=== PATIENT | male | born 1965 | race African-American/Black ===

== ENCOUNTER 2016-06-13 04:41 | Emergency (ER) | payer MEDICAID ==
[~2016-06-13] VITALS: Ht 175.3 cm; Wt 99.8 kg
[2016-06-13] MEDS ORDERED: LANTUS SOL100 UNIT/1 SUBQ (04:50)
[2016-06-13] MEDS ORDERED: METFORMIN HCL500 M1 ORAL (04:50)
[2016-06-13] MEDS ORDERED: GLIPIZIDE5 MG ORAL (04:50)
[2016-06-13] MEDS ORDERED: Azithromycin 250mg tab ORAL ONE (05:15)
[2016-06-13] MEDS ORDERED: Lidocaine 1% MPF 10mg/ml 5ml ONE (05:16)
[2016-06-13] MEDS ORDERED: TESSALON PERLE100 MG ORAL (05:19)
--- NOTE | 2016-06-13 05:20 | Emergency Room Report ---
History of Present Illness General Chief Complaint: Upper Respiratory Illness Source: Patient Present Illness HPI Is a 51-year-old male with no significant past medical history. He presents with a cough and congestion for last 4 days. No fever or chills. Cough is whitish sputum. Also has a runny nose. Second complaint is of penile discharge. His been ongoing for last 2 days. Greenish whitish in nature. He is sexually active. No other complaint. Allergies: Coded Allergies: No Known Allergies (Unverified , 06/13/16) Patient History Past Medical History: none, see triage record, old chart reviewed Past Surgical History: none Pertinent Family History: none Social History: Reports: smoking Immunizations: other Reviewed Nursing Documentation: PMH: Agreed, PSxH: Agreed Nursing Documentation-PMH Hx Diabetes: Yes Review of Systems Eye: Denies: blurred vision, eye pain ENT: Denies: ear pain, nose congestion, throat swelling Respiratory: Reports: cough, sputum, Denies: shortness of breath Cardiovascular: Denies: chest pain, palpitations Gastrointestinal: Denies: abdominal pain, diarrhea, nausea, vomiting Genitourinary: Reports: discharge Musculoskeletal: Denies: back pain, joint pain Skin: Denies: rash Neurological: Denies: headache, numbness Endocrine: Denies: increased thirst, increased urine Hematologic/Lymphatic: Denies: easy bruising All Other Systems: negative except mentioned in HPI Physical Exam Vital Signs Date Time Temp Pulse Resp B/P Pulse Ox O2 Delivery O2 Flow Rate FiO2 06/13/16 04:45 98.2 118 14 175/68 95 Room Air vitals normal except for hypertension Sp02 EP Interpretation: reviewed, normal General Appearance: well appearing, no apparent distress, alert Head: normocephalic, atraumatic Eyes: bilateral eye EOMI, bilateral eye PERRL ENT: hearing grossly normal, normal pharynx Neck: full range of motion, supple, no meningismus Respiratory: chest non-tender, lungs clear, normal breath sounds Cardiovascular #1: regular rate, rhythm, no murmur Gastrointestinal: normal bowel sounds, non tender, no mass, no organomegaly, no bruit, non-distended Genitourinary: other - Greenish penile discharge. No testicular tenderness Musculoskeletal: back normal, gait/station normal, normal range of motion Psychiatric: mood/affect normal Skin: warm/dry Medical Decision Making Diagnostic Impression: Primary Impression: Upper respiratory infection Qualified Codes: J06.9 - Acute upper respiratory infection, unspecified; B97.89 - Other viral agents as the cause of diseases classified elsewhere Additional Impression: Urethritis, gonococcal, acute ER Course Patient presents with a viral upper respiratory infection. No evidence of pneumonia. Blood pressures in the normal range now. No evidence of end organ damage. He is asymptomatic. No need for antibiotics. Is discharged is consistent with a gonorrheal type of discharge. We'll treat for Chlamydia also. Recommended an outpatient testing for HIV, hepatitis, syphilis and other STDs. Last Vital Signs Date Time Temp Pulse Resp B/P Pulse Ox O2 Delivery O2 Flow Rate FiO2 06/13/16 04:57 118 14 Room Air 06/13/16 04:45 98.2 175/68 95 Status: improved Disposition: HOME, SELF-CARE Condition: Stable Scripts Benzonatate* (TESSALON PERLE*) 100 Mg Capsule 100 MG ORAL THREE TIMES A DAY, #20 PERLE Prov: TODD GOMEZ M.D. 06/13/16 Patient Instructions: Upper Respiratory Infection, Adult Additional Instructions: Followup with your Dr. in 7 days. Return for increasing pain, fever, chills, or any concern. Recommend outpatient testing for HIV, hepatitis, syphilis and other STDs. TODD GOMEZ M.D. Jun 13, 2016 05:20
[2016-06-13 05:28] VITALS: BP 143/95
[2016-06-13 05:29] VITALS: BP 143/95
== END 2016-06-13 05:55 | disposition home or self-care (01) ==
LOC: EMR 05:53
DX: J06.9 Acute upper respiratory infection, unspecified (principal); B97.89 Other viral agents as the cause of diseases classified elsewhere; A54.01 Gonococcal cystitis and urethritis, unspecified; E11.9 Type 2 diabetes mellitus without complications; F17.200 Nicotine dependence, unspecified, uncomplicated
CPT/HCPCS: 82962; 96372; 99283; J0696; Q0144

== ENCOUNTER 2016-06-17 04:08 | Emergency (ER) | payer MEDICAID ==
[~2016-06-17] VITALS: Ht 175.3 cm; Wt 99.8 kg
[~2016-06-17 04:08] MED LIST: GLIPIZIDE5 MG ORAL; LANTUS SOL100 UNIT/1 SUBQ; METFORMIN HCL500 M1 ORAL; TESSALON PERLE100 MG ORAL
[2016-06-17] MEDS ORDERED: IBUPROFEN600 MG ORAL (04:40)
[2016-06-17] MEDS ORDERED: ROBAXIN-750750 MG PO (04:40)
[2016-06-17 04:48] VITALS: BP 147/95
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
== END 2016-06-17 04:51 | disposition home or self-care (01) ==
LOC: EMR 04:36
DX: M25.512 Pain in left shoulder (principal); M54.2 Cervicalgia; M79.652 Pain in left thigh; V49.50XA Passenger injured in collision with unspecified motor vehicles in traffic accident, initial encounter; Y92.410 Unspecified street and highway as the place of occurrence of the external cause; I10 Essential (primary) hypertension; E11.9 Type 2 diabetes mellitus without complications
CPT/HCPCS: 99282

== ENCOUNTER 2018-08-16 15:10 | Emergency (ER) | payer MEDICAID ==
[~2018-08-16] VITALS: Ht 175.3 cm; Wt 94.3 kg
[~2018-08-16 15:10] MED LIST changes: +IBUPROFEN600 MG ORAL; +ROBAXIN-750750 MG PO
[2018-08-16] MEDS ORDERED: BP med (15:23)
--- NOTE | 2018-08-16 15:24 | NUR ---
ED Nurse Note: Pt came into the Er w/complaints of coughing x 2 months. No fever. Complaining of 10/10 back pain. Non radiating. A + O x4. Ambulatory. Pt denies injury.
[2018-08-16 15:25] VITALS: BP 150/98
[2018-08-16] MEDS ORDERED: Benzonatate 100mg Perles ORAL ONE ×2 (15:59→16:00)
--- NOTE | 2018-08-16 16:02 | Emergency Room Report ---
History of Present Illness General Chief Complaint: Upper Respiratory Illness Source: Patient Present Illness HPI 53-year-old male patient presents ER complaining of cough for the past 2 weeks. Reports cough with sputum. Denies hemoptysis. Denies recent travel outside the country. Reports previously seen at [facility] 2 times for similar symptoms, first time 1 month ago and was admitted for several days to be monitored. Denies being treated for cough at that time, states that he went back to [facility] a few weeks ago again after the coughing caused him to pull a muscle in his back; states he was treated with pain at the time however was not given any medicine at that time for the cough. Denies fever. Denies shortness of breath, speaking full sentences currently. Denies reports history of asthma as a child, states does not have an inhaler, states has not had to use an inhaler. Reports smokes cigarettes, states he smokes a pack a day. Denies other aggravating or relieving factors. Denies history of OK or stroke. Allergies: Coded Allergies: No Known Allergies (Unverified , 06/13/16) Patient History Past Medical History: see triage record Reviewed Nursing Documentation: PMH: Agreed; PSxH: Agreed Nursing Documentation-PMH Past Medical History: No History, Except For Hx Hypertension: Yes Hx Diabetes: Yes Review of Systems All Other Systems: negative except mentioned in HPI Physical Exam Vital Signs Date Time Temp Pulse Resp B/P (MAP) Pulse Ox O2 Delivery O2 Flow Rate FiO2 08/16/18 15:16 98.1 106 18 158/101 94 Room Air 08/16/18 15:25 98 Sp02 EP Interpretation: reviewed, normal General Appearance: well appearing, no apparent distress, alert, GCS 15, non- toxic Head: normocephalic, atraumatic Eyes: bilateral eye normal inspection, bilateral eye PERRL ENT: hearing grossly normal, normal pharynx, no angioedema, normal voice, uvula midline, moist mucus membranes Neck: full range of motion, no meningismus, no bony tend Respiratory: lungs clear, normal breath sounds, no rhonchi, no respiratory distress, no accessory muscle use, no wheezing, speaking full sentences, other - Anterior chest tender to palpation, no bony deformity, no flail chest Cardiovascular #1: regular rate, rhythm, no edema Cardiovascular #2: 2+ radial (R), 2+ radial (L) Gastrointestinal: non tender, soft, no mass, non-distended, no guarding, no rebound Musculoskeletal: back normal, digits/nails normal, gait/station normal, normal range of motion, non-tender, no calf tenderness, Rayray's Sign negative Neurologic: alert, oriented x3, responsive, motor strength/tone normal, sensory intact Psychiatric: mood/affect normal Skin: no rash Medical Decision Making PA Attestation Dr. Hitchcock is my supervising Physician whom patient management has been discussed with. Diagnostic Impression: Primary Impression: Atypical pneumonia Additional Impression: Upper respiratory infection ER Course Pt presents to ED c/o cough [id number]. DDX considered but are not limited to influenza, viral URI, pneumonia, strep throat, rhinitis, sinusitis, otitis media, otitis externa, OK, PE, costochondritis. Low suspicion for PE per well's criteria. On PE, chest is TTP, reports pain is reproducible, had previous admissions and workup.; chest pain likely musculoskeletal in nature secondary to cough, does not require cardiac workup at this time. Patient instructed to take NSAIDs as needed for pain symptoms. Advised patient follow-up with sports photographer for cardiac stress testing. VITAL SIGNS are WNL, patient is afebrile. ER COURSE: Lungs clear to auscultation, no wheezes, rhonci or rales. patient afebrile. Does not require breathing treatment acutely. Will discharge patient with inhaler. Chest x-ray negative for acute disease however due to duration of symptoms will provide patient with antibiotics to cover for atypical pneumonia. Symptomatic treatment. drink plenty of fluids. Salt water gargles for sore throat. Followup with PCP for further treatment and/or referral as needed. ER precautions given. Patient resting comfortably no acute distress, nontoxic- appearing, states cough symptoms have improved since arrival to the ER. Okay for outpatient follow-up and treatment DISCHARGE: At this time pt is stable for d/c to home. Patient is resting comfortably, in no acute distress, nontoxic appearing. Patient to take medications as instructed Will provide with patient care instructions and any necessary prescriptions. Care plan and follow-up instructions provided. Patient instructed to follow-up with primary care provider in 3 - 5 days. Patient questions asked and answered. Patient reports understanding and agreement to treatment plan. ER precautions given. Patient instructed to return to ER immediately for any new or worsening of symptoms including but not limited to increasing SOB, persistent fever, intractable vomiting. - Please note that this Emergency Department Report was dictated using Purplu[employer] cleaner technology software, occasionally this can lead to erroneous entry secondary to interpretation by the dictation equipment. Chest X-Ray Diagnostic Results Chest X-Ray Diagnostic Results : Chest X-Ray Ordered: Yes # of Views/Limited/Complete: 1 View Indication: Chest Pain EP Interpretation: Yes PA Xray: Interpretation reviewed, by supervising MD, and agrees with findings. Interpretation: no consolidation, no effusion, no pneumothorax, no acute cardiopulmonary disease Impression: No acute disease EZIO Greer PA-C Last Vital Signs Date Time Temp Pulse Resp B/P (MAP) Pulse Ox O2 Delivery O2 Flow Rate FiO2 08/16/18 15:25 100 20 Room Air 98 08/16/18 15:25 98.0 150/98 98 Status: improved Disposition: HOME, SELF-CARE Condition: Stable Scripts Azithromycin* (ZITHROMAX*) 250 Mg Tablet 250 MG ORAL DAILY, #6 TAB 0 Refills Take two tables once daily for 1 day, then one tablet once daily for 4 days. Prov: Fidel Greer 08/16/18 Benzonatate* (TESSALON PERLE*) 100 Mg Capsule 100 MG ORAL THREE TIMES A DAY, #30 PERLE Prov: Fidel Greer 08/16/18 Ibuprofen* (MOTRIN*) 600 Mg Tablet 600 MG ORAL Q8H PRN for For Pain, #30 TAB 0 Refills Prov: Fidel Greer 08/16/18 Albuterol Sulfate* (ALBUTEROL SULFATE MDI*) 8.5 Gm Hfa.aer.ad 2 PUFF INH Q6H, #1 INH 0 Refills Prov: Fidel Greer. 08/16/18 Patient Instructions: Community-Acquired Pneumonia, Adult, [id number], Smoking Cessation, Tips for Success, [id number], Upper Respiratory Infection, Adult Additional Instructions: Followup with primary care provider in 3 -5 days. Discussed referral to sports photographer for cardiac stress test. Discussed referral to pulmonology. Stop smoking. Stop smoking. Take medications as directed. Patient questions asked and answered. ER precautions given, patient instructed to return to ER immediately for any new or worsening of symptoms. Fidel Greer Aug 16, 2018 16:02
--- NOTE | 2018-08-16 16:49 | Diagnostic Imaging Report ---
Indication: Chest pain Technique: One view of the chest Comparison: none Findings: Lungs and pleural spaces are clear. Heart size is normal Impression: No acute process
[2018-08-16] MEDS ORDERED: ALBUTEROL SULF8.5 GM INH (17:05)
[2018-08-16] MEDS ORDERED: IBUPROFEN600 MG ORAL (17:05)
[2018-08-16] MEDS ORDERED: ZITHROMAX250 MG ORAL (17:05)
[2018-08-16] MEDS ORDERED: TESSALON PERLE100 MG ORAL (17:05)
[2018-08-16 17:11] VITALS: BP 145/97
--- NOTE | 2018-08-16 17:12 | NUR ---
ER DISCHARGE NOTE: Patient is cleared to be discharged per ERMD, pt is aox4, on room air, with stable vital signs. pt was given dc and prescription instructions, pt was able to verbalize understanding, pt id band removed without complications. pt is able to ambulate with steady gait. pt took all belongings.
== END 2018-08-16 17:12 | disposition home or self-care (01) ==
LOC: EMR 17:00
DX: J18.9 Pneumonia, unspecified organism (principal); J06.9 Acute upper respiratory infection, unspecified; E11.9 Type 2 diabetes mellitus without complications; I11.0 Hypertensive heart disease with heart failure
CPT/HCPCS: 71045; 99283

== ENCOUNTER 2019-12-22 22:41 | Observation (INO) | payer MEDICAID, OTHER ==
[~2019-12-22 22:41] MED LIST changes: +ALBUTEROL SULF8.5 GM INH; +BP med; +ZITHROMAX250 MG ORAL
[2019-12-23] MEDS ORDERED: Morphine Sulfate 4mg/ml Inj (IV USE ONLY) IVP ONE (00:30)
[2019-12-23] MEDS ORDERED: LORazepam Inj 2mg/ml 1ml IV ONE (02:00)
[2019-12-23] MEDS ORDERED: Omnipaque 350 100ml vial INJ PRN (02:00)
[2019-12-23] MEDS ORDERED: Morphine Sulfate 2mg/ml Inj(IV/IM USE ONLY) IVP PRN ×2 (05:00→06:30)
[2019-12-23] MEDS: NovoLOG Insulin Flexpen SUBQ SCH ×3 (08:39→17:03)
[2019-12-23] MEDS ORDERED: Piperacillin/Tazobactam 3.375 GM in NS 110 ML IVPB SCH (12:00)
[2019-12-23] MEDS ORDERED: NovoLOG Insulin Flexpen SUBQ SCH (16:50)
[2019-12-23] MEDS ORDERED: Sodium Chloride 1gm Tab ORAL SCH (18:00)
[2019-12-23] MEDS ORDERED: Pantoprazole Inj IVP SCH (21:00)
[2019-12-23] MEDS ORDERED: Tamsulosin 0.4mg cap ORAL SCH (21:00)
[2019-12-23] MEDS ORDERED: Levemir Flexpen SUBQ SCH (21:00)
== END 2019-12-23 18:51 | disposition left against medical advice (07) ==
DX: N17.9 Acute kidney failure, unspecified (principal); R07.9 Chest pain, unspecified; F14.90 Cocaine use, unspecified, uncomplicated; F12.90 Cannabis use, unspecified, uncomplicated; R41.82 Altered mental status, unspecified; I10 Essential (primary) hypertension; R11.2 Nausea with vomiting, unspecified; R19.7 Diarrhea, unspecified; J18.9 Pneumonia, unspecified organism; R00.0 Tachycardia, unspecified; E87.1 Hypo-osmolality and hyponatremia; E11.65 Type 2 diabetes mellitus with hyperglycemia; K44.9 Diaphragmatic hernia without obstruction or gangrene; R79.89 Other specified abnormal findings of blood chemistry; Z79.899 Other long term (current) drug therapy; Z79.4 Long term (current) use of insulin; K21.9 Gastro-esophageal reflux disease without esophagitis; E86.0 Dehydration
CPT/HCPCS: 36415; 71045; 71275; 80053; 80307; 81003; 82962; 83036; 83690; 84484; 85025; 85610; 85730; 86850; 86900; 86901; 93005; 96374; 96375; J1815; J2270; J2405; J2543; J7040; Q9967; S0028; U0002; Z7502

== ENCOUNTER 2020-01-27 21:08 | Inpatient (IN) | payer OTHER ==
[~2020-01-27] VITALS: Ht 175.3 cm; Wt 80.8 kg
[2020-01-27] MEDS ORDERED: Morphine Sulfate 4mg/ml Inj (IV USE ONLY) IVP ONE (21:30)
--- NOTE | 2020-01-27 21:30 | Emergency Room Report ---
History of Present Illness General Chief Complaint: Vomiting Source: Patient (Tyrese Bingham MD) Present Illness HPI 54-year-old male presents the ED for evaluation. Presenting with vomiting. States he has been vomiting for the last 3 days. Notes epigastric and chest pain. Burning, 7 out of 10, nonradiating. Denies any diarrhea. Denies any fevers or chills. Accu-Chek in triage over 500. States he is a diabetic and states he is been unable to keep down his medications. No other aggravating relieving factors. Denies any other associated symptoms (Tyrese Bingham MD) Allergies: Coded Allergies: No Known Allergies (Unverified , 06/13/16) COVID-19 Screening Contact w/high risk pt: No Experienced COVID-19 symptoms?: No COVID-19 Testing performed VISUAL ARTIST: Yes COVID-19 Screening: Negative COVID-19 COVID-19 Testing Source: [place] (Tyrese Bingham MD) Patient History Past Medical History: DM, HTN Past Surgical History: none Pertinent Family History: none Social History: Denies: smoking, alcohol use, drug use Immunizations: UTD Reviewed Nursing Documentation: PMH: Agreed; PSxH: Agreed (Tyrese Bingham MD) Nursing Documentation-PMH Past Medical History: No History, Except For Hx Hypertension: Yes Hx Diabetes: Yes Hx Cancer: No Hx Neurological Problems: No (Tyrese Bingham MD) Review of Systems All Other Systems: negative except mentioned in HPI (Tyrese Bingham MD) Physical Exam Vital Signs Date Time Temp Pulse Resp B/P (MAP) Pulse Ox O2 Delivery O2 Flow Rate FiO2 01/27/20 21:14 99.0 115 19 174/102 (126) 98 Room Air Sp02 EP Interpretation: reviewed, normal General Appearance: alert, GCS 15, non-toxic, mild distress Head: normocephalic, atraumatic Eyes: bilateral eye normal inspection, bilateral eye PERRL ENT: hearing grossly normal, normal pharynx, no angioedema, normal voice Neck: full range of motion, supple/symm/no masses Respiratory: chest non-tender, lungs clear, normal breath sounds, speaking full sentences Cardiovascular #1: no edema, tachycardia Cardiovascular #2: 2+ carotid (R), 2+ carotid (L), 2+ radial (R), 2+ radial (L) , 2+ dorsalis pedis (R), 2+ dorsalis pedis (L) Gastrointestinal: normal bowel sounds, non tender, soft, non-distended, no guarding, no rebound Rectal: deferred Genitourinary: normal inspection, no CVA tenderness Musculoskeletal: back normal, normal range of motion, gait/station normal, non- tender Neurologic: alert, motor strength/tone normal, oriented x3, sensory intact, responsive, speech normal Psychiatric: judgement/insight normal, memory normal, mood/affect normal, no suicidal/homicidal ideation Reflexes: 3+ bicep (R), 3+ bicep (L), 3+ tricep (R), 3+ tricep (L), 3+ knee (R) , 3+ knee (L) Skin: no rash Lymphatic: no adenopathy (Tyrese Bingham MD) Medical Decision Making Diagnostic Impression: Primary Impression: Hyperglycemia Additional Impression: Vomiting Qualified Codes: R11.2 - Nausea with vomiting, unspecified ER Course Please see above note. Patient signed out to me for review of labs and ultimate disposition. Glucose still high. Insulin ordered. Patient needing admission due to vomiting and hyperglycemia with glucose controlled. Contact Dr. King Laboratory Tests Test 01/27/20 21:18 01/28/20 00:03 01/28/20 08:05 White Blood Count 8.1 K/UL (4.8-10.8) 8.6 K/UL (4.8-10.8) Red Blood Count 6.59 M/UL (4.70-6.10) H 6.37 M/UL (4.70-6.10) H Hemoglobin 17.7 G/DL (14.2-18.0) 17.0 G/DL (14.2-18.0) Hematocrit 55.1 % (42.0-52.0) H 53.7 % (42.0-52.0) H Mean Corpuscular Volume 84 FL (80-99) 84 FL (80-99) Mean Corpuscular Hemoglobin 26.8 PG (27.0-31.0) L 26.7 PG (27.0-31.0) L Mean Corpuscular Hemoglobin Concent 32.1 G/DL (32.0-36.0) 31.7 G/DL (32.0-36.0) L Red Cell Distribution Width 13.0 % (11.6-14.8) 12.8 % (11.6-14.8) Platelet Count 204 K/UL (150-450) 181 K/UL (150-450) Mean Platelet Volume 10.5 FL (6.5-10.1) H 9.9 FL (6.5-10.1) Neutrophils (%) (Auto) 78.8 % (45.0-75.0) H 65.3 % (45.0-75.0) Lymphocytes (%) (Auto) 13.7 % (20.0-45.0) L 22.2 % (20.0-45.0) Monocytes (%) (Auto) 5.3 % (1.0-10.0) 9.6 % (1.0-10.0) Eosinophils (%) (Auto) 0.0 % (0.0-3.0) 0.0 % (0.0-3.0) Basophils (%) (Auto) 2.3 % (0.0-2.0) H 2.8 % (0.0-2.0) H Sodium Level 127 MMOL/L (136-145) L 136 MMOL/L (136-145) Potassium Level 3.8 MMOL/L (3.5-5.1) 3.4 MMOL/L (3.5-5.1) L Chloride Level 84 MMOL/L (98-107) L 93 MMOL/L (98-107) L Carbon Dioxide Level 34 MMOL/L (21-32) H 36 MMOL/L (21-32) H Anion Gap 9 mmol/L (5-15) 7 mmol/L (5-15) Blood Urea Nitrogen 30 mg/dL (7-18) H 25 mg/dL (7-18) H Creatinine 1.7 MG/DL (0.55-1.30) H 1.5 MG/DL (0.55-1.30) H Estimated Glomerular Filtration Rate 51.4 mL/min (>60) 59.4 mL/min (>60) Glucose Level 492 MG/DL (74-106) H 190 MG/DL (74-106) #H Calcium Level 9.1 MG/DL (8.5-10.1) 9.1 MG/DL (8.5-10.1) Magnesium Level 2.0 MG/DL (1.8-2.4) Total Bilirubin 0.7 MG/DL (0.2-1.0) Aspartate Amino Transferase (AST) 36 U/L (15-37) Alanine Aminotransferase (ALT) 51 U/L (12-78) Alkaline Phosphatase 65 U/L (46-116) Troponin I 0.017 ng/mL (0.000-0.056) 0.003 ng/mL (0.000-0.056) Total Protein 7.9 G/DL (6.4-8.2) Albumin 3.5 G/DL (3.4-5.0) Globulin 4.4 g/dL Albumin/Globulin Ratio 0.8 (1.0-2.7) L Acetone Level Positive-small (NEGATIVE) Arterial Blood pH 7.487 (7.350-7.450) Arterial Blood Partial Pressure CO2 47.3 mmHg (35.0-45.0) H Arterial Blood Partial Pressure O2 61.5 mmHg (75.0-100.0) L Arterial Blood HCO3 35.0 mmol/L (22.0-26.0) H Arterial Blood Oxygen Saturation 91.2 % (95-100) L Arterial Blood Base Excess 9.9 (-2-2) *H Humza Test Positive D-Dimer 2.35 mg/L FEU (0.00-0.49) H Lipase 163 U/L (73-393) (Slim Christiansen MD) EKG Diagnostic Results Rate: tachycardiac Rhythm: NSR ST Segments: other - twave inversions (Tyrese Bingham MD) Rhythm Strip Diag. Results EP Interpretation: yes Rhythm: NSR, no PVC's, no ectopy (Tyrese Bingham MD) EP Interpretation: yes Rhythm: no PVC's, no ectopy, other - Sinus tachycardia (Slim Christiansen MD) Chest X-Ray Diagnostic Results Chest X-Ray Diagnostic Results : Chest X-Ray Ordered: Yes # of Views/Limited/Complete: 1 View Indication: Other EP Interpretation: Yes Interpretation: no consolidation, no effusion, no pneumothorax Impression: No acute disease Electronically Signed by: Electronically signed by Slim Christiansen MD (Slim Christiansen MD) Last Vital Signs Date Time Temp Pulse Resp B/P (MAP) Pulse Ox O2 Delivery O2 Flow Rate FiO2 01/27/20 21:14 99.0 115 19 174/102 (126) 98 Room Air (Tyrese Bingham MD) Last Vital Signs Date Time Temp Pulse Resp B/P (MAP) Pulse Ox O2 Delivery O2 Flow Rate FiO2 01/28/20 09:00 Room Air 01/28/20 08:00 98.7 70 17 101/67 (78) 100 Status: improved (Slim Christiansen MD) Disposition: ADMITTED INPATIENT Condition: Serious Tyerse Bingham MD Jan 27, 2020 21:30 Slim Christiansen MD Jan 27, 2020 23:06
[2020-01-27 21:34] VITALS: BP 174/102
[2020-01-27 21:40] LABS: ANION GAP 9 mmol/L (5-15); BASOPHILS % (AUTO) 2.3 % (0.0-2.0); BLOOD UREA NITROGEN 30 mg/dL (7-18); CALCIUM 9.1 MG/DL (8.5-10.1); CARBON DIOXIDE 34 MMOL/L (21-32); CHLORIDE 84 MMOL/L (98-107); CREATININE 1.7 MG/DL (0.55-1.30); HEMATOCRIT 55.1 % (42.0-52.0); HEMOGLOBIN 17.7 G/DL (14.2-18.0); LYMPHOCYTES % (AUTO) 13.7 % (20.0-45.0); MEAN CORPUSCULAR VOLUME 84 FL (80-99); MONOCYTES % (AUTO) 5.3 % (1.0-10.0); NEUTROPHILS % (AUTO) 78.8 % (45.0-75.0); PLATELET COUNT 204 K/UL (150-450); POTASSIUM 3.8 MMOL/L (3.5-5.1); RED BLOOD COUNT 6.59 M/UL (4.70-6.10); SODIUM 127 MMOL/L (136-145); WHITE BLOOD COUNT 8.1 K/UL (4.8-10.8)
[2020-01-27 21:45] LABS: ALANINE AMINOTRANSFERASE 51 U/L (12-78); ALBUMIN 3.5 G/DL (3.4-5.0); ALBUMIN/GLOBULIN RATIO 0.8 (1.0-2.7); ALKALINE PHOSPHATASE 65 U/L (46-116); ASPARTATE AMINO TRANSFERASE 36 U/L (15-37); BILIRUBIN,TOTAL 0.7 MG/DL (0.2-1.0)
--- NOTE | 2020-01-27 21:48 | Diagnostic Imaging Report ---
EXAM: XR Chest, 1 View CLINICAL HISTORY: CP TECHNIQUE: Frontal view of the chest. COMPARISON: 12/22/2019 FINDINGS: Lungs: Unremarkable. No consolidation. Pleural space: Unremarkable. No pneumothorax. Heart: Unremarkable. No cardiomegaly. Mediastinum: Unremarkable. Bones/joints: No acute abnormality IMPRESSION: Unremarkable chest.
[2020-01-27] MEDS ORDERED: Insulin Human Regular 100units/ml 3ml IV ONE (23:15)
[2020-01-28] VITALS: BP 135/76
[2020-01-28 04:00] VITALS: BP 137/80
[2020-01-28] MEDS: NovoLOG Insulin Flexpen SUBQ SCH ×7 (05:16→22:09)
--- NOTE | 2020-01-28 07:41 | History and Physical ---
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 SALES SERVICE REP 01/28/20 0741: History of Present Illness General Date patient seen: Jan 28, 2020 Time patient seen: 07:00 Reason for Hospitalization: Vomiting Present Illness HPI 54 years old male with past medical history of diabetes mellitus, hypertension, presented to emergency room for vomiting episodes for the last 3 days. He denied blood in emesis. No diarrhea. No nausea, vomiting, No abdominal pain. No fever or chills. Patient with prior hx of drug abuse Patient also reported epigastric and chest pain , described as burning, nonradiating , 7 out of 10 on a scale 1-10. No fever or chills. Patient with hx of drug abuse, Urine tox screen in December + for cocaine and marijuana. In triage blood sugar was over 500. Patient reported being diabetic and unable to keep down his medications. Upon evaluation patient was tachycardic with heart rate 115 and hypertensive with blood pressure 174/102. EKG revealed sinus tachycardia ,no acute ischemic changes. Chemistry revealed sodium 127, potassium 3.8, glucose 492, stable LFT. Anion gap 9 No leukocytosis , hemoglobin 17.7 . Chest x-ray revealed no acute cardiopulmonary pathology . In ED department patient received insulin, IV fluids, Pepcid and admitted for further management. Allergies: Coded Allergies: No Known Allergies (Unverified , 06/13/16) COVID-19 Screening Contact w/high risk pt: No Experienced COVID-19 symptoms?: No Medication History Scheduled Albuterol Sulfate* (Albuterol Sulfate Mdi*), 2 PUFF INH Q6H Azithromycin* (Zithromax*), 250 MG ORAL DAILY Benzonatate* (Tessalon Perle*), 100 MG ORAL THREE TIMES A DAY Benzonatate* (Tessalon Perle*), 100 MG ORAL THREE TIMES A DAY Glipizide* (Glipizide*), 5 MG ORAL BIDAC, (Reported) Insulin Glargine (Lantus), 0 SUBQ BEDTIME, (Reported) Metformin Hcl* (Metformin Hcl*), 500 MG ORAL TWICE A DAY, (Reported) Methocarbamol* (Robaxin-750*), 750 MG PO TID Scheduled PRN Ibuprofen (Motrin), 600 MG ORAL Q8H PRN for For Pain Ibuprofen (Motrin), 600 MG ORAL Q8H PRN for For Pain Miscellaneous Medications [BP med], (Reported) Patient History Healthcare decision maker Resuscitation status Advanced Directive on File Review of Systems Constitutional: Reports: weakness Eye: Reports: no symptoms Respiratory: Reports: no symptoms Cardiovascular: Reports: chest pain Gastrointestinal: Reports: see HPI Genitourinary: Reports: no symptoms Musculoskeletal: Reports: no symptoms Skin: Reports: no symptoms Psychiatric: Reports: other - hx of substance abuse/cocaine Neurological: Reports: no symptoms Endocrine: Reports: see HPI Hematologic/Lymphatic: Reports: no symptoms Physical Exam Last 24 Hour Vital Signs Date Time Temp Pulse Resp B/P (MAP) Pulse Ox O2 Delivery O2 Flow Rate FiO2 01/28/20 04:00 98.8 103 19 137/80 (99) 96 01/28/20 04:00 105 01/28/20 00:00 98.8 104 19 135/76 (95) 95 01/28/20 00:00 104 01/27/20 23:45 98.0 105 18 138/87 98 Room Air 01/27/20 23:35 Room Air 01/27/20 21:59 99.0 01/27/20 21:34 115 19 Room Air 01/27/20 21:34 99.0 85 19 174/102 98 Room Air 01/27/20 21:14 99.0 115 19 174/102 (126) 98 Room Air Laboratory Tests Test 01/27/20 21:18 01/28/20 00:03 White Blood Count 8.1 K/UL (4.8-10.8) Red Blood Count 6.59 M/UL (4.70-6.10) H Hemoglobin 17.7 G/DL (14.2-18.0) Hematocrit 55.1 % (42.0-52.0) H Mean Corpuscular Volume 84 FL (80-99) Mean Corpuscular Hemoglobin 26.8 PG (27.0-31.0) L Mean Corpuscular Hemoglobin Concent 32.1 G/DL (32.0-36.0) Red Cell Distribution Width 13.0 % (11.6-14.8) Platelet Count 204 K/UL (150-450) Mean Platelet Volume 10.5 FL (6.5-10.1) H Neutrophils (%) (Auto) 78.8 % (45.0-75.0) H Lymphocytes (%) (Auto) 13.7 % (20.0-45.0) L Monocytes (%) (Auto) 5.3 % (1.0-10.0) Eosinophils (%) (Auto) 0.0 % (0.0-3.0) Basophils (%) (Auto) 2.3 % (0.0-2.0) H Sodium Level 127 MMOL/L (136-145) L Potassium Level 3.8 MMOL/L (3.5-5.1) Chloride Level 84 MMOL/L (98-107) L Carbon Dioxide Level 34 MMOL/L (21-32) H Anion Gap 9 mmol/L (5-15) Blood Urea Nitrogen 30 mg/dL (7-18) H Creatinine 1.7 MG/DL (0.55-1.30) H Estimat Glomerular Filtration Rate 51.4 mL/min (>60) Glucose Level 492 MG/DL (74-106) H Calcium Level 9.1 MG/DL (8.5-10.1) Magnesium Level 2.0 MG/DL (1.8-2.4) Total Bilirubin 0.7 MG/DL (0.2-1.0) Aspartate Amino Transf (AST/SGOT) 36 U/L (15-37) Alanine Aminotransferase (ALT/SGPT) 51 U/L (12-78) Alkaline Phosphatase 65 U/L (46-116) Troponin I 0.017 ng/mL (0.000-0.056) Total Protein 7.9 G/DL (6.4-8.2) Albumin 3.5 G/DL (3.4-5.0) Globulin 4.4 g/dL Albumin/Globulin Ratio 0.8 (1.0-2.7) L Acetone Level Positive-small (NEGATIVE) Arterial Blood pH 7.487 (7.350-7.450) Arterial Blood Partial Pressure CO2 47.3 mmHg (35.0-45.0) H Arterial Blood Partial Pressure O2 61.5 mmHg (75.0-100.0) L Arterial Blood HCO3 35.0 mmol/L (22.0-26.0) H Arterial Blood Oxygen Saturation 91.2 % (95-100) L Arterial Blood Base Excess 9.9 (-2-2) *H Humza Test Positive Height (Feet): 5 Height (Inches): 9.00 Weight (Pounds): 175 Medications Current Medications Medications (Trade) Dose Ordered Sig/Ubaldo Route PRN Reason Start Time Stop Time Status Last Admin Dose Admin Acetaminophen (Tylenol) 650 mg Q4H PRN ORAL Mild Pain (Pain Scale 1-3) 01/28/20 00:00 02/27/20 00:00 Aspirin (ASA) 81 mg DAILY NG 01/28/20 09:00 03/13/20 08:59 Dextrose (Dextrose 50%) 25 ml Q30M PRN IV Hypoglycemia 01/28/20 00:00 04/27/20 00:00 Dextrose (Dextrose 50%) 50 ml Q30M PRN IV Hypoglycemia 01/28/20 00:00 04/27/20 00:00 Heparin Sodium (Porcine) (Heparin 5000 units/ml) 5,000 units EVERY 12 HOURS SUBQ 01/28/20 09:00 03/13/20 08:59 Hydralazine HCl (Apresoline) 10 mg Q4H PRN IV SBP > 160 01/28/20 00:00 04/27/20 00:00 Insulin Aspart (NovoLOG) BEFORE MEALS AND HS SUBQ 01/28/20 06:30 04/27/20 06:29 01/28/20 05:17 Insulin Aspart (NovoLOG) 6 units NOVOTIAC SUBQ 01/28/20 06:30 04/27/20 06:29 01/28/20 05:16 Insulin Detemir (Levemir) 18 units BEDTIME SUBQ 01/28/20 21:00 04/27/20 20:59 Ondansetron HCl (Zofran) 4 mg Q6H PRN IVP Nausea & Vomiting 01/28/20 00:00 02/27/20 00:00 Sodium Chloride 1,000 ml @ 125 mls/hr Q8H IV 01/28/20 00:00 02/27/20 00:00 01/28/20 00:32 Assessment/Plan Assessment/Plan: ASSESSMENT Vomiting. probably due to hypo Na GISELL, likely due to dehydration brought by vomiting Hyperglycemia associated with DM ( unable to keep down his emdiations due to vonting) HTN with intimal HTN urgency Chest pain Epigastric pain Cocaine abuse PLAN OF CARE telemetry repeat troponin and ECG a/PLT therapy with ASA , check lipid panel hold on BB, given recebnt hx of cocaine abuse urine tox ordered hydralazine as needed for blood pressure spikes await for further cardio recs DVT and GI prophylaxis BS management with long-acting Levemir and sliding scale of insulin as needed check Hgb A1c diabetic diet , diabetic teaching rapid COVID testing ( last checked about a month ago) aggressive IV hydration monitor renal parameters and lytes acute kidney injury likely due to dehydration source of hyponatremia probably due to dehydration, uncontrolled BS -resolved replace K urine tox screen supportive care case discussed and evaluated by supervising physician Sergio King MD 01/28/20 1313: History of Present Illness General Reason for Hospitalization: Vomiting Present Illness Allergies: Coded Allergies: No Known Allergies (Unverified , 06/13/16) Medication History Scheduled Albuterol Sulfate* (Albuterol Sulfate Mdi*), 2 PUFF INH Q6H Azithromycin* (Zithromax*), 250 MG ORAL DAILY Benzonatate* (Tessalon Perle*), 100 MG ORAL THREE TIMES A DAY Benzonatate* (Tessalon Perle*), 100 MG ORAL THREE TIMES A DAY Glipizide* (Glipizide*), 5 MG ORAL BIDAC, (Reported) Insulin Glargine (Lantus), 0 SUBQ BEDTIME, (Reported) Metformin Hcl* (Metformin Hcl*), 500 MG ORAL TWICE A DAY, (Reported) Methocarbamol* (Robaxin-750*), 750 MG PO TID Scheduled PRN Ibuprofen (Motrin), 600 MG ORAL Q8H PRN for For Pain Ibuprofen (Motrin), 600 MG ORAL Q8H PRN for For Pain Miscellaneous Medications [BP med], (Reported) Assessment/Plan Assessment/Plan: Patient seen and examined with SALES SERVICE REP. Agree with above A&P as it reflects our joint deliberations. DM with hyperglycemia, no e/o DKA GISELL likely 2/2 dehydration Atypical CP with elevated D-dimer N/V H/O pancreatic cyst vs IPMN vs other H/O cocaine use HTN a/w HTNurgency --> Tele --> R/O COVID --> Duplex and D-dimer --> TTE --> Cards eval --> IVF, monitor renal function, renal eval --> GI recs, F/U CT, anti-emetic therapy --> F/U UTox --> DVT Px: Hep SQ --> S/W Miranda Rose NP Jan 28, 2020 07:41 Sergio King MD Jan 28, 2020 13:13
[2020-01-28 08:00] VITALS: BP 101/67
[2020-01-28 08:47] LABS: BASOPHILS % (AUTO) 2.8 % (0.0-2.0); HEMATOCRIT 53.7 % (42.0-52.0); LYMPHOCYTES % (AUTO) 22.2 % (20.0-45.0); MEAN CORPUSCULAR VOLUME 84 FL (80-99); MONOCYTES % (AUTO) 9.6 % (1.0-10.0); NEUTROPHILS % (AUTO) 65.3 % (45.0-75.0); PLATELET COUNT 181 K/UL (150-450); RED BLOOD COUNT 6.37 M/UL (4.70-6.10); RED CELL DISTRIBUTION WIDTH 12.8 % (11.6-14.8); WHITE BLOOD COUNT 8.6 K/UL (4.8-10.8)
[2020-01-28 09:01] LABS: ANION GAP 7 mmol/L (5-15); BLOOD UREA NITROGEN 25 mg/dL (7-18); CALCIUM 9.1 MG/DL (8.5-10.1); CARBON DIOXIDE 36 MMOL/L (21-32); CHLORIDE 93 MMOL/L (98-107); CREATININE 1.5 MG/DL (0.55-1.30); POTASSIUM 3.4 MMOL/L (3.5-5.1); SODIUM 136 MMOL/L (136-145)
--- NOTE | 2020-01-28 09:49 | General Progress Note ---
Assessment/Plan Problem List: (1) DM (diabetes mellitus) ICD Codes: E11.9 - Type 2 diabetes mellitus without complications SNOMED: 50500485 (2) Vomiting ICD Codes: R11.10 - Vomiting, unspecified SNOMED: 218216635 (3) Abdominal pain ICD Codes: R10.9 - Unspecified abdominal pain SNOMED: 36034507 Assessment/Plan: add reglan add ppi CT of abd given ? panc cyst based on last admission chest CT repeat labs will fu Subjective ROS Limited/Unobtainable: Yes Allergies: Coded Allergies: No Known Allergies (Unverified , 06/13/16) Objective Last 24 Hour Vital Signs Date Time Temp Pulse Resp B/P (MAP) Pulse Ox O2 Delivery O2 Flow Rate FiO2 01/28/20 08:00 98.7 70 17 101/67 (78) 100 01/28/20 04:00 98.8 103 19 137/80 (99) 96 01/28/20 04:00 105 01/28/20 00:00 98.8 104 19 135/76 (95) 95 01/28/20 00:00 104 01/27/20 23:45 98.0 105 18 138/87 98 Room Air 01/27/20 23:35 Room Air 01/27/20 21:59 99.0 01/27/20 21:34 115 19 Room Air 01/27/20 21:34 99.0 85 19 174/102 98 Room Air 01/27/20 21:14 99.0 115 19 174/102 (126) 98 Room Air Laboratory Tests 01/27/20 21:18: White Blood Count 8.1, Red Blood Count 6.59H, Hemoglobin 17.7, Hematocrit 55.1H , Mean Corpuscular Volume 84, Mean Corpuscular Hemoglobin 26.8L, Mean Corpuscular Hemoglobin Concent 32.1, Red Cell Distribution Width 13.0, Platelet Count 204, Mean Platelet Volume 10.5H, Neutrophils (%) (Auto) 78.8H, Lymphocytes (%) (Auto) 13.7L, Monocytes (%) (Auto) 5.3, Eosinophils (%) (Auto) 0.0, Basophils (%) (Auto) 2.3H, Sodium Level 127L, Potassium Level 3.8, Chloride Level 84L, Carbon Dioxide Level 34H, Anion Gap 9, Blood Urea Nitrogen 30H, Creatinine 1.7H, Estimat Glomerular Filtration Rate 51.4, Glucose Level 492H, Calcium Level 9.1, Magnesium Level 2.0, Total Bilirubin 0.7, Aspartate Amino Transf (AST/SGOT) 36, Alanine Aminotransferase (ALT/SGPT) 51, Alkaline Phosphatase 65, Troponin I 0.017, Total Protein 7.9, Albumin 3.5, Globulin 4.4, Albumin/Globulin Ratio 0.8L, Acetone Level Positive-small 01/28/20 00:03: Arterial Blood pH 7.487H, Arterial Blood Partial Pressure CO2 47.3H, Arterial Blood Partial Pressure O2 61.5L, Arterial Blood HCO3 35.0H, Arterial Blood Oxygen Saturation 91.2L, Arterial Blood Base Excess 9.9*H, Humza Test Positive 01/28/20 08:05: White Blood Count 8.6, Red Blood Count 6.37H, Hemoglobin 17.0, Hematocrit 53.7H , Mean Corpuscular Volume 84, Mean Corpuscular Hemoglobin 26.7L, Mean Corpuscular Hemoglobin Concent 31.7L, Red Cell Distribution Width 12.8, Platelet Count 181, Mean Platelet Volume 9.9, Neutrophils (%) (Auto) 65.3, Lymphocytes (%) (Auto) 22.2, Monocytes (%) (Auto) 9.6, Eosinophils (%) (Auto) 0.0, Basophils (%) (Auto) 2.8H, Sodium Level 136, Potassium Level 3.4L, Chloride Level 93L, Carbon Dioxide Level 36H, Anion Gap 7, Blood Urea Nitrogen 25H, Creatinine 1.5H, Estimat Glomerular Filtration Rate 59.4, Glucose Level 190 #H, Calcium Level 9.1, Troponin I 0.003, D-Dimer 2.35H, Lipase 163 Height (Feet): 5 Height (Inches): 9.00 Weight (Pounds): 175 General Appearance: alert EENT: PERRL/EOMI Neck: supple Cardiovascular: normal rate Respiratory/Chest: decreased breath sounds Abdomen: normal bowel sounds, non tender, soft Extremities: non-tender Kalyan Hayward MD Jan 28, 2020 09:49
[2020-01-28] MEDS ORDERED: Omnipaque-300 100ml vial INJ PRN (10:00)
[2020-01-28] MEDS: Aspirin Baby 81mg NG SCH (10:24)
[2020-01-28] MEDS: Heparin 5000 units/ml inj SUBQ SCH ×2 (10:27→22:07)
[2020-01-28 11:56] VITALS: BP 107/76
[2020-01-28] MEDS ORDERED: Metoclopramide 10mg/2ml Inj IVP PRN (13:00)
[2020-01-28] MEDS ORDERED: Tubing IV Secondary IV ONE (14:15)
[2020-01-28 16:00] VITALS: BP 104/64
[2020-01-28 18:53] LABS: APPEARANCE,URINE SLIGHTLY CLOUDY; COLOR,URINE YELLOW; PROTEIN,URINE 1+ (NEGATIVE)
[2020-01-28 18:54] LABS: BILIRUBIN, URINE NEGATIVE (NEGATIVE); GLUCOSE, URINE (UA) 3+ (NEGATIVE); KETONES,URINE 2+ (NEGATIVE); LEUKOCYTE ESTERASE ,URINE 2+ (NEGATIVE); NITRITE,URINE NEGATIVE (NEGATIVE); UROBILINOGEN,URINE NORMAL MG/DL (0.0-1.0)
[2020-01-28 20:00] VITALS: BP 159/87
[2020-01-28] MEDS ORDERED: Levemir Flexpen SUBQ SCH (21:00)
--- NOTE | 2020-01-28 21:30 | Consultation ---
DATE OF CONSULTATION: 01/28/2020 ENDOCRINOLOGY CONSULTATION CONSULTING PHYSICIAN: Vaughn Sanchez M.D. REFERRING PHYSICIAN: Sergio King M.D. REASON FOR CONSULTATION: Diabetes management. HISTORY OF PRESENT ILLNESS: The patient is a 54-year-old male with history of diabetes on combination of Lantus, metformin, and glipizide as an outpatient, presented to the hospital with abdominal pain, acute kidney injury, and hyperglycemia. Blood sugar was over 500, was not in DKA. Endocrinology was consulted in order to assist in management of diabetes. His COVID test was negative. The patient has been vomiting for the past 3 days, evaluated by collection agent, Dr. Hayward. PAST MEDICAL HISTORY: 1. Diabetes. 2. Hypertension. PAST SURGICAL HISTORY: None. FAMILY HISTORY: Noncontributory. SOCIAL HISTORY: No smoking, alcohol, or drug use. LABORATORY VALUES: Sodium 136, potassium 3.4, chloride 92, bicarb 36, BUN 25, creatinine 1.5, glucose of 190. On presentation, glucose was 492, and anion gap was only 9. Lipase is 163. REVIEW OF SYSTEMS: As per HPI. PHYSICAL EXAMINATION: GENERAL: Awake and alert. VITAL SIGNS: Blood pressure is 101/67, heart rate 101, temperature 98.7, respiratory rate 18 HEENT: Pupils reactive to light. Sclerae are anicteric. NECK: No JVD. No thyromegaly. LUNGS: Clear. HEART: Regular rate and rhythm. ABDOMEN: Positive bowel sounds. Soft. EXTREMITIES: No clubbing, cyanosis, or edema. DIAGNOSES: 1. Diabetes, out of control. 2. GISELL. 3. Abdominal pain. PLAN: 1. Continue to hold glipizide and metformin. 2. Start Januvia 100 mg daily. 3. Continue Levemir 18 units at bedtime. 4. Continue NovoLog 6 units before each meal. 5. NovoLog sliding scale before meals and at bedtime. 6. Hypoglycemia protocol is in order. 7. Further adjustment according to blood glucose values. Thank you, Dr. King, for the courtesy of this consultation. Vaughn Sanchez M.D. DR: FUNMI JOB#: [id number] CC: MINI
[2020-01-29] VITALS (8 sets, daily range): BP systolic 117–181; BP diastolic 76–100
[2020-01-29] MEDS: NovoLOG Insulin Flexpen SUBQ SCH ×7 (05:50→20:34)
[2020-01-29 06:43] LABS: BASOPHILS % (AUTO) 2.4 % (0.0-2.0); HEMATOCRIT 53.5 % (42.0-52.0); HEMOGLOBIN 17.2 G/DL (14.2-18.0); LYMPHOCYTES % (AUTO) 17.1 % (20.0-45.0); MEAN CORPUSCULAR VOLUME 84 FL (80-99); MONOCYTES % (AUTO) 11.9 % (1.0-10.0); NEUTROPHILS % (AUTO) 68.7 % (45.0-75.0); PLATELET COUNT 170 K/UL (150-450); RED BLOOD COUNT 6.35 M/UL (4.70-6.10); RED CELL DISTRIBUTION WIDTH 12.6 % (11.6-14.8); WHITE BLOOD COUNT 6.4 K/UL (4.8-10.8)
[2020-01-29 06:47] LABS: ALANINE AMINOTRANSFERASE 68 U/L (12-78); ALBUMIN 2.9 G/DL (3.4-5.0); ALBUMIN/GLOBULIN RATIO 0.7 (1.0-2.7); ALKALINE PHOSPHATASE 57 U/L (46-116); ANION GAP 11 mmol/L (5-15); ASPARTATE AMINO TRANSFERASE 84 U/L (15-37); BILIRUBIN,TOTAL 0.6 MG/DL (0.2-1.0); BLOOD UREA NITROGEN 21 mg/dL (7-18); CALCIUM 8.8 MG/DL (8.5-10.1); CARBON DIOXIDE 30 MMOL/L (21-32); CHLORIDE 93 MMOL/L (98-107); CHOLESTEROL 275 MG/DL (< 200); CREATININE 1.3 MG/DL (0.55-1.30); HDL CHOLESTEROL 39 MG/DL (40-60); POTASSIUM 3.2 MMOL/L (3.5-5.1); SODIUM 134 MMOL/L (136-145); TRIGLYCERIDES 274 MG/DL (30-150)
--- NOTE | 2020-01-29 06:47 | General Progress Note ---
Assessment/Plan Problem List: (1) DM (diabetes mellitus) ICD Codes: E11.9 - Type 2 diabetes mellitus without complications SNOMED: 99186753 (2) Abdominal pain ICD Codes: R10.9 - Unspecified abdominal pain SNOMED: 06259135 (3) Hyperglycemia ICD Codes: R73.9 - Hyperglycemia, unspecified SNOMED: 85256046 (4) Vomiting ICD Codes: R11.10 - Vomiting, unspecified SNOMED: 891081009 Qualifiers: Qualified Codes: R11.2 - Nausea with vomiting, unspecified Assessment/Plan: increase Levemir 18 to 24 units qhs increase Novolog 6 to 8 units ac tid continue Novolog sliding scale ac / hs hypoglycemia protocol in order continue Januvia 100 mg daily Subjective Allergies: Coded Allergies: No Known Allergies (Unverified , 06/13/16) All Systems: reviewed and negative except above Subjective events noted interval notes reviewed NPO for CT abd fasting glucose elevated after receiving Levemir 18 u last night Item Value Date Time Bedside Blood Glucose 257 mg/dl H 01/29/20 0618 Bedside Blood Glucose 198 mg/dl H 01/28/20 2209 Bedside Blood Glucose 275 mg/dl H 01/28/20 1643 Bedside Blood Glucose 257 mg/dl H 01/28/20 1252 Bedside Blood Glucose 316 mg/dl H 01/28/20 0517 Bedside Blood Glucose 444 mg/dl H 01/27/20 2309 Objective Last 24 Hour Vital Signs Date Time Temp Pulse Resp B/P (MAP) Pulse Ox O2 Delivery O2 Flow Rate FiO2 01/29/20 04:00 98.7 97 20 157/81 (106) 98 01/29/20 03:33 100 01/29/20 00:00 97.9 95 18 132/79 (96) 99 01/28/20 23:29 100 01/28/20 21:00 Room Air 01/28/20 20:00 99.0 92 18 159/87 (111) 99 01/28/20 19:14 105 01/28/20 16:00 98.1 64 19 104/64 (77) 100 01/28/20 16:00 102 01/28/20 12:00 103 01/28/20 11:56 96.8 61 18 107/76 (86) 99 01/28/20 09:00 Room Air 01/28/20 08:00 101 01/28/20 08:00 98.7 70 17 101/67 (78) 100 Intake and Output 01/28/20 01/29/20 19:00 07:00 Intake Total 2600 ml 1245 ml Balance 2600 ml 1245 ml Intake Oral 1600 ml 120 ml IV Total 1000 ml 1125 ml # Voids 2 Laboratory Tests 01/28/20 08:05: White Blood Count 8.6, Red Blood Count 6.37H, Hemoglobin 17.0, Hematocrit 53.7H , Mean Corpuscular Volume 84, Mean Corpuscular Hemoglobin 26.7L, Mean Corpuscular Hemoglobin Concent 31.7L, Red Cell Distribution Width 12.8, Platelet Count 181, Mean Platelet Volume 9.9, Neutrophils (%) (Auto) 65.3, Lymphocytes (%) (Auto) 22.2, Monocytes (%) (Auto) 9.6, Eosinophils (%) (Auto) 0.0, Basophils (%) (Auto) 2.8H, D-Dimer 2.35H, Sodium Level 136, Potassium Level 3.4L, Chloride Level 93L, Carbon Dioxide Level 36H, Anion Gap 7, Blood Urea Nitrogen 25H, Creatinine 1.5H, Estimat Glomerular Filtration Rate 59.4, Glucose Level 190#H, Calcium Level 9.1, Troponin I 0.003, Lipase 163 01/28/20 12:00: POC Whole Blood Glucose 257H 01/28/20 16:28: POC Whole Blood Glucose 275H 01/28/20 18:22: Urine Color Yellow, Urine Appearance Slightly cloudy, Urine pH 8.0, Urine Specific [place] 1.005, Urine Protein 1+H, Urine Glucose (UA) 3+H, Urine Ketones 2+H, Urine Blood Negative, Urine Nitrite Negative, Urine Bilirubin Negative, Urine Urobilinogen Normal, Urine Leukocyte Esterase 2+H, Urine RBC 0- 2H, Urine WBC 10-15H, Urine Squamous Epithelial Cells None, Urine Bacteria Few, Urine Opiates Screen Negative, Urine Barbiturates Screen Negative, Phencyclidine (PCP) Screen Negative, Urine Amphetamines Screen Negative, Urine Benzodiazepines Screen Negative, Urine Cocaine Screen PositiveH, Urine Marijuana (THC) Screen PositiveH 01/28/20 20:33: POC Whole Blood Glucose [Pending] 01/29/20 05:46: White Blood Count [Pending], Red Blood Count [Pending], Hemoglobin [Pending], Hematocrit [Pending], Mean Corpuscular Volume [Pending], Mean Corpuscular Hemoglobin [Pending], Mean Corpuscular Hemoglobin Concent [Pending], Red Cell Distribution Width [Pending], Platelet Count [Pending], Mean Platelet Volume [ Pending], Neutrophils (%) (Auto) [Pending], Lymphocytes (%) (Auto) [Pending], Monocytes (%) (Auto) [Pending], Eosinophils (%) (Auto) [Pending], Basophils (%) (Auto) [Pending], Sodium Level [Pending], Potassium Level [Pending], Chloride Level [Pending], Carbon Dioxide Level [Pending], Blood Urea Nitrogen [Pending], Creatinine [Pending], Estimat Glomerular Filtration Rate [Pending], Glucose Level [Pending], Hemoglobin A1c [Pending], Calcium Level [Pending], Total Bilirubin [Pending], Aspartate Amino Transf (AST/SGOT) [Pending], Alanine Aminotransferase (ALT/SGPT) [Pending], Alkaline Phosphatase [Pending], Total Protein [Pending], Albumin [Pending], Globulin [Pending], Triglycerides Level [ Pending], Cholesterol Level [Pending], LDL Cholesterol [Pending], HDL Cholesterol [Pending], Cholesterol/HDL Ratio [Pending], Amylase Level [Pending] , Lipase [Pending] 01/29/20 05:59: POC Whole Blood Glucose 257H Height (Feet): 5 Height (Inches): 9.00 Weight (Pounds): 180 General Appearance: no apparent distress Neck: non-tender Cardiovascular: normal rate Respiratory/Chest: lungs clear Abdomen: normal bowel sounds Objective Current Medications Medications (Trade) Dose Ordered Sig/Ubaldo Route PRN Reason Start Time Stop Time Status Last Admin Dose Admin Acetaminophen (Tylenol) 650 mg Q4H PRN ORAL Mild Pain (Pain Scale 1-3) 01/28/20 00:00 02/27/20 00:00 01/28/20 18:19 Aspirin (ASA) 81 mg DAILY NG 01/28/20 09:00 03/13/20 08:59 01/28/20 10:24 Barium Sulfate (Readi-Cat 2) 450 ml NOW PRN ORAL Radiology Procedure 01/28/20 13:00 01/30/20 12:59 Dextrose (Dextrose 50%) 25 ml Q30M PRN IV Hypoglycemia 01/28/20 00:00 04/27/20 00:00 Dextrose (Dextrose 50%) 50 ml Q30M PRN IV Hypoglycemia 01/28/20 00:00 04/27/20 00:00 Heparin Sodium (Porcine) (Heparin 5000 units/ml) 5,000 units EVERY 12 HOURS SUBQ 01/28/20 09:00 03/13/20 08:59 01/28/20 22:07 Hydralazine HCl (Apresoline) 10 mg Q4H PRN IV SBP > 160 01/28/20 00:00 04/27/20 00:00 Insulin Aspart (NovoLOG) BEFORE MEALS AND HS SUBQ 01/28/20 06:30 04/27/20 06:29 01/28/20 22:09 Insulin Aspart (NovoLOG) 6 units NOVOTIAC SUBQ 01/28/20 06:30 04/27/20 06:29 01/28/20 16:42 Insulin Detemir (Levemir) 18 units BEDTIME SUBQ 01/28/20 21:00 04/27/20 20:59 01/28/20 22:08 Iohexol (OMNIPAQUE-300 100ml) 100 ml NOW PRN INJ Radiology Procedure 01/28/20 10:00 01/30/20 09:47 Metoclopramide HCl (Reglan) 10 mg Q8H PRN IVP Nausea & Vomiting 01/28/20 13:00 02/27/20 12:59 Ondansetron HCl (Zofran) 4 mg Q6H PRN IVP Nausea & Vomiting 01/28/20 00:00 02/27/20 00:00 01/28/20 13:17 Pantoprazole (Protonix) 40 mg DAILY IVP 01/29/20 09:00 02/28/20 08:59 Sitagliptin Phosphate (Januvia) 100 mg ACBREAKFAST ORAL 01/28/20 15:00 02/27/20 14:59 01/28/20 15:29 Sodium Chloride 1,000 ml @ 125 mls/hr Q8H IV 01/28/20 00:00 02/27/20 00:00 01/29/20 00:14 Vaughn Sanchez MD Jan 29, 2020 06:47
[2020-01-29 08:15] LABS: AMYLASE 75 U/L (25-115)
[2020-01-29] MEDS: Aspirin Baby 81mg NG SCH (08:46)
[2020-01-29] MEDS: Heparin 5000 units/ml inj SUBQ SCH ×2 (08:48→20:43)
[2020-01-29] MEDS ORDERED: Pantoprazole Inj IVP SCH (09:00)
--- NOTE | 2020-01-29 09:56 | General Progress Note ---
Assessment/Plan Problem List: (1) DM (diabetes mellitus) ICD Codes: E11.9 - Type 2 diabetes mellitus without complications SNOMED: 94509091 (2) Vomiting ICD Codes: R11.10 - Vomiting, unspecified SNOMED: 272914410 Qualifiers: Qualified Codes: R11.2 - Nausea with vomiting, unspecified (3) Abdominal pain ICD Codes: R10.9 - Unspecified abdominal pain SNOMED: 65672028 (4) Cocaine abuse ICD Codes: F14.10 - Cocaine abuse, uncomplicated SNOMED: 60035693 Assessment/Plan: reglan ppi CT of abd given ? panc cyst based on last admission chest CT repeat labs will fu Subjective Allergies: Coded Allergies: No Known Allergies (Unverified , 06/13/16) Objective Last 24 Hour Vital Signs Date Time Temp Pulse Resp B/P (MAP) Pulse Ox O2 Delivery O2 Flow Rate FiO2 01/29/20 08:00 98.1 97 20 133/86 (102) 100 01/29/20 04:00 98.7 97 20 157/81 (106) 98 01/29/20 03:33 100 01/29/20 00:00 97.9 95 18 132/79 (96) 99 01/28/20 23:29 100 01/28/20 21:00 Room Air 01/28/20 20:00 99.0 92 18 159/87 (111) 99 01/28/20 19:14 105 01/28/20 16:00 98.1 64 19 104/64 (77) 100 01/28/20 16:00 102 01/28/20 12:00 103 01/28/20 11:56 96.8 61 18 107/76 (86) 99 Intake and Output 01/28/20 01/29/20 19:00 07:00 Intake Total 2600 ml 1245 ml Balance 2600 ml 1245 ml Intake Oral 1600 ml 120 ml IV Total 1000 ml 1125 ml # Voids 2 Laboratory Tests 01/28/20 12:00: POC Whole Blood Glucose 257H 01/28/20 16:28: POC Whole Blood Glucose 275H 01/28/20 18:22: Urine Color Yellow, Urine Appearance Slightly cloudy, Urine pH 8.0, Urine Specific [place] 1.005, Urine Protein 1+H, Urine Glucose (UA) 3+H, Urine Ketones 2+H, Urine Blood Negative, Urine Nitrite Negative, Urine Bilirubin Negative, Urine Urobilinogen Normal, Urine Leukocyte Esterase 2+H, Urine RBC 0- 2H, Urine WBC 10-15H, Urine Squamous Epithelial Cells None, Urine Bacteria Few, Urine Opiates Screen Negative, Urine Barbiturates Screen Negative, Phencyclidine (PCP) Screen Negative, Urine Amphetamines Screen Negative, Urine Benzodiazepines Screen Negative, Urine Cocaine Screen PositiveH, Urine Marijuana (THC) Screen PositiveH 01/28/20 20:33: POC Whole Blood Glucose [Pending] 01/29/20 05:46: White Blood Count 6.4, Red Blood Count 6.35H, Hemoglobin 17.2, Hematocrit 53.5H , Mean Corpuscular Volume 84, Mean Corpuscular Hemoglobin 27.1, Mean Corpuscular Hemoglobin Concent 32.2, Red Cell Distribution Width 12.6, Platelet Count 170, Mean Platelet Volume 9.7, Neutrophils (%) (Auto) 68.7, Lymphocytes (% ) (Auto) 17.1L, Monocytes (%) (Auto) 11.9H, Eosinophils (%) (Auto) 0.0, Basophils (%) (Auto) 2.4H, Sodium Level 134L, Potassium Level 3.2L, Chloride Level 93L, Carbon Dioxide Level 30, Anion Gap 11, Blood Urea Nitrogen 21H, Creatinine 1.3, Estimat Glomerular Filtration Rate > 60, Glucose Level 243H, Hemoglobin A1c 10.1H, Calcium Level 8.8, Total Bilirubin 0.6, Aspartate Amino Transf (AST/SGOT) 84H, Alanine Aminotransferase (ALT/SGPT) 68, Alkaline Phosphatase 57, Total Protein 7.1, Albumin 2.9L, Globulin 4.2, Albumin/Globulin Ratio 0.7L, Triglycerides Level 274H, Cholesterol Level 275H, LDL Cholesterol 184H, HDL Cholesterol 39L, Cholesterol/HDL Ratio 7.1H, Amylase Level 75, Lipase 270 01/29/20 05:59: POC Whole Blood Glucose 257H Height (Feet): 5 Height (Inches): 9.00 Weight (Pounds): 180 General Appearance: alert EENT: normal ENT inspection Neck: supple Cardiovascular: normal rate Respiratory/Chest: decreased breath sounds Abdomen: normal bowel sounds, non tender, soft Extremities: non-tender Kalyan Hayward MD Jan 29, 2020 09:56
--- NOTE | 2020-01-29 10:05 | Pulmonology Progress Note ---
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 ENERGY PROJECT ENGINEER 01/29/20 1005: Subjective ROS Limited/Unobtainable: Yes Allergies: Coded Allergies: No Known Allergies (Unverified , 06/13/16) All Systems: reviewed and negative except above Subjective denies CP, SOB, on RA on RA no emesis awaiting fro VQ scan and CT A/P creat trended down Na up to 134, K-3.2 Objective Last 24 Hour Vital Signs Date Time Temp Pulse Resp B/P (MAP) Pulse Ox O2 Delivery O2 Flow Rate FiO2 01/29/20 08:00 98.1 97 20 133/86 (102) 100 01/29/20 04:00 98.7 97 20 157/81 (106) 98 01/29/20 03:33 100 01/29/20 00:00 97.9 95 18 132/79 (96) 99 01/28/20 23:29 100 01/28/20 21:00 Room Air 01/28/20 20:00 99.0 92 18 159/87 (111) 99 01/28/20 19:14 105 01/28/20 16:00 98.1 64 19 104/64 (77) 100 01/28/20 16:00 102 01/28/20 12:00 103 01/28/20 11:56 96.8 61 18 107/76 (86) 99 Intake and Output 01/28/20 01/29/20 19:00 07:00 Intake Total 2600 ml 1245 ml Balance 2600 ml 1245 ml Intake Oral 1600 ml 120 ml IV Total 1000 ml 1125 ml # Voids 2 General Appearance: no acute distress HEENT: normocephalic, atraumatic, anicteric, mucous membranes moist Respiratory: lungs clear, no respiratory distress, no accessory muscle use Cardiovascular: normal rate, regular rhythm - SR on tele Abdomen: normal bowel sounds, soft, non tender, no organomegaly Extremities: no edema, pedal pulses normal Neurologic: no motor/sensory deficits, alert, responsive Musculoskeletal: normal muscle bulk Microbiology Date/Time Source Procedure Growth Status 01/28/20 15:27 Nasopharynx SARS-CoV-2 RdRp Gene Assay - Final Complete 01/28/20 18:22 Urine,Clean Catch Urine Culture - Preliminary NO GROWTH Resulted Laboratory Tests 01/28/20 12:00: POC Whole Blood Glucose 257H 01/28/20 16:28: POC Whole Blood Glucose 275H 01/28/20 18:22: Urine Color Yellow, Urine Appearance Slightly cloudy, Urine pH 8.0, Urine Specific [place] 1.005, Urine Protein 1+H, Urine Glucose (UA) 3+H, Urine Ketones 2+H, Urine Blood Negative, Urine Nitrite Negative, Urine Bilirubin Negative, Urine Urobilinogen Normal, Urine Leukocyte Esterase 2+H, Urine RBC 0- 2H, Urine WBC 10-15H, Urine Squamous Epithelial Cells None, Urine Bacteria Few, Urine Opiates Screen Negative, Urine Barbiturates Screen Negative, Phencyclidine (PCP) Screen Negative, Urine Amphetamines Screen Negative, Urine Benzodiazepines Screen Negative, Urine Cocaine Screen PositiveH, Urine Marijuana (THC) Screen PositiveH 01/28/20 20:33: POC Whole Blood Glucose [Pending] 01/29/20 05:46: White Blood Count 6.4, Red Blood Count 6.35H, Hemoglobin 17.2, Hematocrit 53.5H , Mean Corpuscular Volume 84, Mean Corpuscular Hemoglobin 27.1, Mean Corpuscular Hemoglobin Concent 32.2, Red Cell Distribution Width 12.6, Platelet Count 170, Mean Platelet Volume 9.7, Neutrophils (%) (Auto) 68.7, Lymphocytes (% ) (Auto) 17.1L, Monocytes (%) (Auto) 11.9H, Eosinophils (%) (Auto) 0.0, Basophils (%) (Auto) 2.4H, Sodium Level 134L, Potassium Level 3.2L, Chloride Level 93L, Carbon Dioxide Level 30, Anion Gap 11, Blood Urea Nitrogen 21H, Creatinine 1.3, Estimat Glomerular Filtration Rate > 60, Glucose Level 243H, Hemoglobin A1c 10.1H, Calcium Level 8.8, Total Bilirubin 0.6, Aspartate Amino Transf (AST/SGOT) 84H, Alanine Aminotransferase (ALT/SGPT) 68, Alkaline Phosphatase 57, Total Protein 7.1, Albumin 2.9L, Globulin 4.2, Albumin/Globulin Ratio 0.7L, Triglycerides Level 274H, Cholesterol Level 275H, LDL Cholesterol 184H, HDL Cholesterol 39L, Cholesterol/HDL Ratio 7.1H, Amylase Level 75, Lipase 270 01/29/20 05:59: POC Whole Blood Glucose 257H Current Medications Medications (Trade) Dose Ordered Sig/Ubaldo Route PRN Reason Start Time Stop Time Status Last Admin Dose Admin Acetaminophen (Tylenol) 650 mg Q4H PRN ORAL Mild Pain (Pain Scale 1-3) 01/28/20 00:00 02/27/20 00:00 01/28/20 18:19 Aspirin (ASA) 81 mg DAILY NG 01/28/20 09:00 03/13/20 08:59 01/29/20 08:46 Barium Sulfate (Readi-Cat 2) 450 ml NOW PRN ORAL Radiology Procedure 01/28/20 13:00 01/30/20 12:59 Dextrose (Dextrose 50%) 25 ml Q30M PRN IV Hypoglycemia 01/28/20 00:00 04/27/20 00:00 Dextrose (Dextrose 50%) 50 ml Q30M PRN IV Hypoglycemia 01/28/20 00:00 04/27/20 00:00 Heparin Sodium (Porcine) (Heparin 5000 units/ml) 5,000 units EVERY 12 HOURS SUBQ 01/28/20 09:00 03/13/20 08:59 01/29/20 08:48 Hydralazine HCl (Apresoline) 10 mg Q4H PRN IV SBP > 160 01/28/20 00:00 04/27/20 00:00 Insulin Aspart (NovoLOG) BEFORE MEALS AND HS SUBQ 01/28/20 06:30 04/27/20 06:29 01/28/20 22:09 Insulin Aspart (NovoLOG) 8 units NOVOTIAC SUBQ 01/29/20 11:50 04/27/20 06:29 Insulin Detemir (Levemir) 24 units BEDTIME SUBQ 01/29/20 21:00 04/27/20 20:59 Iohexol (OMNIPAQUE-300 100ml) 100 ml NOW PRN INJ Radiology Procedure 01/28/20 10:00 01/30/20 09:47 Metoclopramide HCl (Reglan) 10 mg Q8H PRN IVP Nausea & Vomiting 01/28/20 13:00 02/27/20 12:59 Ondansetron HCl (Zofran) 4 mg Q6H PRN IVP Nausea & Vomiting 01/28/20 00:00 02/27/20 00:00 01/28/20 13:17 Pantoprazole (Protonix) 40 mg DAILY IVP 01/29/20 09:00 02/28/20 08:59 01/29/20 08:46 Potassium Chloride (K-Dur) 40 meq ONCE ORAL 01/29/20 08:15 01/29/20 10:00 01/29/20 08:46 Sitagliptin Phosphate (Januvia) 100 mg ACBREAKFAST ORAL 01/28/20 15:00 02/27/20 14:59 01/28/20 15:29 Sodium Chloride 1,000 ml @ 125 mls/hr Q8H IV 01/28/20 00:00 02/27/20 00:00 01/29/20 00:14 Assessment/Plan Assessment/Plan ASSESSMENT Vomiting. probably due to hypo Na GISELL, likely due to dehydration brought by vomiting Hyperglycemia associated with DM DMOOC ( HgA1c 10.1) HTN with initial HTN urgency Chest pain, likely atypical with elevated D dimer Epigastric pain H/O pancreatic cyst vs IPMN vs other Cocaine abuse PLAN OF CARE telemetry repeat troponin negative and ECG no acute ischemic changes a/PLT therapy with ASA , lipid panel with HLD will hold on statin for now since AST rising from 36 to 84 this am low far low cholesterol diet hold on BB, given recent hx of cocaine abuse urine tox ordered hydralazine as needed for blood pressure spikes await for further cardio recs BP stable DVT and GI prophylaxis ECHO woth pEF 55-60%, borderline LVH pao vidcen of WNA VQ scan pending given BS management with long-acting Levemir , short acting premeal insulin, januvia and SSIn as needed=per endo recs hypoglycemia protocol in place Hgb A1c -10.1 diabetic diet , diabetic teaching rapid COVID NGT IV hydration, decreased rate monitor renal parameters and lytes acute kidney injury likely due to dehydration resolved creat from 1.7 down to 1.3 source of hyponatremia probably due to dehydration, uncontrolled BS -resolved , na 134 this am replace K this am urine tox screen + cocaine and marijuana supportive care case discussed and evaluated by supervising physician Chung Hammonds MD 01/29/20 1052: Subjective Allergies: Coded Allergies: No Known Allergies (Unverified , 06/13/16) Assessment/Plan Assessment/Plan Patient seen and examined with ENERGY PROJECT ENGINEER. Agree with above A&P as it reflects our joint deliberations. Problem List: DM with hyperglycemia, no e/o DKA GISELL likely 2/2 dehydration - improved Atypical CP with elevated D-dimer N/V H/O pancreatic cyst vs IPMN vs other H/O cocaine use HTN a/w HTNurgency Plan: * BS control, endocrine f/u appreciated, DM out of control * f/u planned v/q scan * CT abdomen/pelvis ordered by GI * Cards f/u * Renal f/u, cont IVF, Cr improved * DVT ppx: Hep SQ * s/w Miranda Rose NP Jan 29, 2020 10:05 Chung Hammonds MD Jan 29, 2020 10:52
--- NOTE | 2020-01-29 11:55 | Diagnostic Imaging Report ---
Indications: Shortness of breath, elevated d-dimer Technique: IV administration 5.5 mCi 99m technetium macroaggregated albumin. Images obtained over the lungs in multiple projections. Previously, patient inhaled 40 mCi aerosolized 99M technetium DTPA. Images obtained over the lungs in multiple projections Comparison: Chest radiograph dated 01/27/2020 Findings: Perfusion is slightly heterogeneous, but no segmental or or subsegmental perfusion defects are demonstrated. No evidence of aerosol perfusion mismatch demonstrated. Impression: Findings are deemed low probability for pulmonary embolus
--- NOTE | 2020-01-29 14:26 | Cardiac Electrophysiology PN ---
Subjective Subjective [id number] Objective Last 24 Hour Vital Signs Date Time Temp Pulse Resp B/P (MAP) Pulse Ox O2 Delivery O2 Flow Rate FiO2 01/29/20 12:00 98.0 98 20 139/88 (105) 98 01/29/20 11:46 97 01/29/20 09:00 Room Air 01/29/20 08:00 98.1 97 20 133/86 (102) 100 01/29/20 07:47 100 01/29/20 04:00 98.7 97 20 157/81 (106) 98 01/29/20 03:33 100 01/29/20 00:00 97.9 95 18 132/79 (96) 99 01/28/20 23:29 100 01/28/20 21:00 Room Air 01/28/20 20:00 99.0 92 18 159/87 (111) 99 01/28/20 19:14 105 01/28/20 16:00 98.1 64 19 104/64 (77) 100 01/28/20 16:00 102 Intake and Output 01/28/20 01/29/20 18:59 06:59 Intake Total 2600 ml 1370 ml Balance 2600 ml 1370 ml Intake Oral 1600 ml 120 ml IV Total 1000 ml 1250 ml # Voids 2 Laboratory Tests Test 01/28/20 16:28 01/28/20 18:22 01/28/20 20:33 01/29/20 05:46 POC Whole Blood Glucose 275 MG/DL (74-106) H Pending Urine Color Yellow Urine Appearance Slightly cloudy Urine pH 8.0 (4.5-8.0) Urine Specific [place] 1.005 (1.005-1.035) Urine Protein 1+ (NEGATIVE) H Urine Glucose (UA) 3+ (NEGATIVE) H Urine Ketones 2+ (NEGATIVE) H Urine Blood Negative (NEGATIVE) Urine Nitrite Negative (NEGATIVE) Urine Bilirubin Negative (NEGATIVE) Urine Urobilinogen Normal MG/DL (0.0-1.0) Urine Leukocyte Esterase 2+ (NEGATIVE) H Urine RBC 0-2 /HPF (0 - 0) H Urine WBC 10-15 /HPF (0 - 0) H Urine Squamous Epithelial Cells None /LPF (NONE/OCC) Urine Bacteria Few /HPF (NONE) Urine Opiates Screen Negative (NEGATIVE) Urine Barbiturates Screen Negative (NEGATIVE) Phencyclidine (PCP) Screen Negative (NEGATIVE) Urine Amphetamines Screen Negative (NEGATIVE) Urine Benzodiazepines Screen Negative (NEGATIVE) Urine Cocaine Screen Positive (NEGATIVE) H Urine Marijuana (THC) Screen Positive (NEGATIVE) H White Blood Count 6.4 K/UL (4.8-10.8) Red Blood Count 6.35 M/UL (4.70-6.10) H Hemoglobin 17.2 G/DL (14.2-18.0) Hematocrit 53.5 % (42.0-52.0) H Mean Corpuscular Volume 84 FL (80-99) Mean Corpuscular Hemoglobin 27.1 PG (27.0-31.0) Mean Corpuscular Hemoglobin Concent 32.2 G/DL (32.0-36.0) Red Cell Distribution Width 12.6 % (11.6-14.8) Platelet Count 170 K/UL (150-450) Mean Platelet Volume 9.7 FL (6.5-10.1) Neutrophils (%) (Auto) 68.7 % (45.0-75.0) Lymphocytes (%) (Auto) 17.1 % (20.0-45.0) L Monocytes (%) (Auto) 11.9 % (1.0-10.0) H Eosinophils (%) (Auto) 0.0 % (0.0-3.0) Basophils (%) (Auto) 2.4 % (0.0-2.0) H Sodium Level 134 MMOL/L (136-145) L Potassium Level 3.2 MMOL/L (3.5-5.1) L Chloride Level 93 MMOL/L (98-107) L Carbon Dioxide Level 30 MMOL/L (21-32) Anion Gap 11 mmol/L (5-15) Blood Urea Nitrogen 21 mg/dL (7-18) H Creatinine 1.3 MG/DL (0.55-1.30) Estimat Glomerular Filtration Rate > 60 mL/min (>60) Glucose Level 243 MG/DL (74-106) H Hemoglobin A1c 10.1 % (4.3-6.0) H Calcium Level 8.8 MG/DL (8.5-10.1) Total Bilirubin 0.6 MG/DL (0.2-1.0) Aspartate Amino Transf (AST/SGOT) 84 U/L (15-37) H Alanine Aminotransferase (ALT/SGPT) 68 U/L (12-78) Alkaline Phosphatase 57 U/L (46-116) Total Protein 7.1 G/DL (6.4-8.2) Albumin 2.9 G/DL (3.4-5.0) L Globulin 4.2 g/dL Albumin/Globulin Ratio 0.7 (1.0-2.7) L Triglycerides Level 274 MG/DL (30-150) H Cholesterol Level 275 MG/DL (< 200) H LDL Cholesterol 184 mg/dL (<100) H HDL Cholesterol 39 MG/DL (40-60) L Cholesterol/HDL Ratio 7.1 (3.3-4.4) H Amylase Level 75 U/L (25-115) Lipase 270 U/L (73-393) Test 01/29/20 05:59 01/29/20 11:47 01/29/20 11:48 POC Whole Blood Glucose 257 MG/DL (74-106) H 300 MG/DL (74-106) H 261 MG/DL (74-106) H Microbiology Date/Time Source Procedure Growth Status 01/28/20 15:27 Nasopharynx SARS-CoV-2 RdRp Gene Assay - Final Complete 01/28/20 18:22 Urine,Clean Catch Urine Culture - Preliminary NO GROWTH Resulted Adalberto Dunlap MD Jan 29, 2020 14:26
--- NOTE | 2020-01-29 16:31 | Diagnostic Imaging Report ---
Clinical Indication: Abdominal pain Technique: Patient ingested oral contrast. IV administration nonionic contrast. Multiphasic phase spiral acquisition obtained through the abdomen and pelvis. Multiplanar reconstructions were generated. Total dose length product 537 mGycm. CTDIvol(s) 11 mGy. Dose reduction achieved using automated exposure control Comparison: none Findings: The pancreas is unremarkable. No pancreatic swelling, peripancreatic edema or inflammatory change is demonstrated. The pancreas enhances normally. The pancreatic duct appears normal. No gallstones are evident. No biliary ductal dilatation. The liver, spleen, adrenals, kidneys are unremarkable. An accessory splenule is incidentally noted. A retroaortic left renal vein is incidentally noted. No pelvic mass or adenopathy. No retroperitoneal or mesenteric mass or adenopathy. The included lung bases demonstrate posterior dependent atelectatic changes. The bones are unremarkable. Normal appendix. There is suggestion of wall thickening of the transverse and descending colon, although this could be an artifact of under distention, as the distended portions of the colon do not appear thick-walled. No evidence of diverticulosis or diverticulitis. No small bowel distention. Ingested contrast has traversed the entirety of the small bowel and reached the colon. No small bowel wall thickening. There is wall thickening of the distal esophagus. The stomach and duodenum are unremarkable. Impression: Unremarkable pancreas Questionable wall thickening of the transverse and descending colon. Likely artifact of lack of distention, but the possibility of colitis should be considered. Correlate with clinical findings Wall thickening of the distal esophagus, likely esophagitis Negative for gallstones Incidental findings as noted The CT scanner at [facility] is accredited by the [employer] and the scans are performed using protocols designed to limit radiation exposure to as low as reasonably achievable to attain images of sufficient resolution adequate for diagnostic evaluation.
--- NOTE | 2020-01-29 20:30 | Consultation ---
DATE OF CONSULTATION: 01/29/2020 CARDIOLOGY CONSULTATION CONSULTING PHYSICIAN: Adalberto Dunlap MD REFERRING PHYSICIAN: Sergio King MD REASON FOR CONSULTATION: Management of hypertension and possible acute coronary syndrome. HISTORY OF PRESENT ILLNESS: The patient is a 54-year-old gentleman with history of hypertension, diabetes, and history of polysubstance abuse, just last month including cocaine and marijuana presented to the emergency room with vomiting for the last three days. The patient denies any vomiting or emesis and no diarrhea. He denies any syncope. The patient also had epigastric and chest pain that was nonradiating at 7/10. In the triage, blood sugar was more than 500. He states that he is unable to keep his medication down. The patient also was tachycardic of 115 and the blood pressure 174/102. The patient was also hyponatremic, sodium 127 with anion gap of 9. The patient received insulin, IV fluids, and admitted. Cardiology consultation was obtained for further evaluation and management. His initial troponin was negative. FAMILY HISTORY: Noncontributory. SOCIAL HISTORY: History of polysubstance abuse positive for cocaine and marijuana. PHYSICAL EXAMINATION: VITAL SIGNS: Show blood pressure 139/88, pulse is 98, respirations 18, and temperature 98. HEAD AND NECK: Showed no JVD. LUNGS: Clear. CARDIOVASCULAR: Shows regular S1 and S2 with no gallop or murmur. ABDOMEN: Soft. EXTREMITIES: No pitting edema. LABORATORY AND DIAGNOSTIC DATA: Lab shows urine toxicology screen is positive for cocaine and marijuana. Sodium 132, potassium 3.4, BUN of 25, creatinine 1.5, glucose of 190. Troponin negative x2. The D-dimer is 2.35. White count of 6.4, hemoglobin of 17, hematocrit of 53, and platelet count of 170. V/Q scan showed low probability for pulmonary embolus. ASSESSMENT AND PLAN: 1. Chest pain. The patient is already ruled out for myocardial infarction, however, could be due to effect of cocaine. We will get an echocardiogram to rule out for ejection fraction and wall motion abnormality. 2. Accelerated hypertension. Blood pressure is better now, on p.r.n. IV hydralazine. 3. Hypokalemia. Potassium replaced. 4. Renal failure. Creatinine of 1.5. 5. Polysubstance abuse with cocaine and marijuana. Avoid beta-blockers. 6. Urinary tract infection. 7. Elevated D-dimer but V/Q scan was low probability. 8. Uncontrolled diabetes, on insulin. Thank you very much for allowing me to participate in the care of this patient. Please do not hesitate to contact me for any questions regarding my evaluation. Sincerely, Adalberto Dunlap M.D. DR: Spencer JOB#: [id number] CC:
[2020-01-29] MEDS: Pantoprazole Inj IVP SCH (20:43)
[2020-01-29] MEDS ORDERED: Levemir Flexpen SUBQ SCH (21:00)
[2020-01-30] VITALS: BP 108/60
[2020-01-30 04:00] VITALS: BP 131/78
[2020-01-30] MEDS: NovoLOG Insulin Flexpen SUBQ SCH ×6 (06:30→17:30)
--- NOTE | 2020-01-30 06:55 | General Progress Note ---
Assessment/Plan Problem List: (1) DM (diabetes mellitus) ICD Codes: E11.9 - Type 2 diabetes mellitus without complications SNOMED: 16018690 (2) Abdominal pain ICD Codes: R10.9 - Unspecified abdominal pain SNOMED: 15297620 (3) Hyperglycemia ICD Codes: R73.9 - Hyperglycemia, unspecified SNOMED: 66482935 (4) Vomiting ICD Codes: R11.10 - Vomiting, unspecified SNOMED: 899037831 Qualifiers: Qualified Codes: R11.2 - Nausea with vomiting, unspecified Assessment/Plan: continue Levemir 24 units qhs continue Novolog 8 units ac tid continue Novolog sliding scale ac / hs hypoglycemia protocol in order continue Januvia 100 mg daily Subjective Allergies: Coded Allergies: No Known Allergies (Unverified , 06/13/16) All Systems: reviewed and negative except above Subjective events noted interval notes reviewed refused Levemir last night Item Value Date Time Bedside Blood Glucose 124 mg/dl H 01/29/20 2041 Bedside Blood Glucose 131 mg/dl H 01/29/20 1654 Bedside Blood Glucose 261 mg/dl H 01/29/20 1231 Bedside Blood Glucose 257 mg/dl H 01/29/20 0618 Objective Last 24 Hour Vital Signs Date Time Temp Pulse Resp B/P (MAP) Pulse Ox O2 Delivery O2 Flow Rate FiO2 01/30/20 04:00 90 01/30/20 00:14 99 01/30/20 00:00 98.9 97 19 108/60 (76) 95 01/29/20 21:46 110 164/87 (112) 01/29/20 21:00 98.6 107 30 181/100 (127) 100 01/29/20 21:00 Room Air 01/29/20 20:50 181/100 01/29/20 20:00 100 01/29/20 16:00 97.9 91 20 117/76 (90) 94 01/29/20 15:13 93 01/29/20 12:00 98.0 98 20 139/88 (105) 98 01/29/20 11:46 97 01/29/20 09:00 Room Air 01/29/20 08:00 98.1 97 20 133/86 (102) 100 01/29/20 07:47 100 Intake and Output 01/29/20 01/30/20 19:00 07:00 Intake Total 1385 ml 375 ml Output Total 700 ml Balance 685 ml 375 ml Intake Oral 260 ml IV Total 1125 ml 375 ml Output Urine Total 700 ml # Voids 2 Laboratory Tests 01/29/20 11:47: POC Whole Blood Glucose 300H 01/29/20 11:48: POC Whole Blood Glucose 261H 01/29/20 16:20: POC Whole Blood Glucose 131H 01/29/20 20:06: POC Whole Blood Glucose 124H Height (Feet): 5 Height (Inches): 9.00 Weight (Pounds): 178 General Appearance: no apparent distress Neck: normal alignment Cardiovascular: normal rate Respiratory/Chest: lungs clear Abdomen: normal bowel sounds Objective Current Medications Medications (Trade) Dose Ordered Sig/Ubaldo Route PRN Reason Start Time Stop Time Status Last Admin Dose Admin Acetaminophen (Tylenol) 650 mg Q4H PRN ORAL Mild Pain (Pain Scale 1-3) 01/28/20 00:00 02/27/20 00:00 01/29/20 20:49 Aspirin (ASA) 81 mg DAILY NG 01/28/20 09:00 03/13/20 08:59 01/29/20 08:46 Barium Sulfate (Readi-Cat 2) 450 ml NOW PRN ORAL Radiology Procedure 01/28/20 13:00 01/30/20 12:59 Dextrose (Dextrose 50%) 25 ml Q30M PRN IV Hypoglycemia 01/28/20 00:00 04/27/20 00:00 Dextrose (Dextrose 50%) 50 ml Q30M PRN IV Hypoglycemia 01/28/20 00:00 04/27/20 00:00 Heparin Sodium (Porcine) (Heparin 5000 units/ml) 5,000 units EVERY 12 HOURS SUBQ 01/28/20 09:00 03/13/20 08:59 01/29/20 20:43 Hydralazine HCl (Apresoline) 10 mg Q4H PRN IV SBP > 160 01/28/20 00:00 04/27/20 00:00 01/29/20 20:50 Insulin Aspart (NovoLOG) BEFORE MEALS AND HS SUBQ 01/28/20 06:30 04/27/20 06:29 01/29/20 12:30 Insulin Aspart (NovoLOG) 8 units NOVOTIAC SUBQ 01/29/20 11:50 04/27/20 06:29 01/29/20 16:54 Insulin Detemir (Levemir) 24 units BEDTIME SUBQ 01/29/20 21:00 04/27/20 20:59 Iohexol (OMNIPAQUE-300 100ml) 100 ml NOW PRN INJ Radiology Procedure 01/28/20 10:00 01/30/20 09:47 Metoclopramide HCl (Reglan) 10 mg Q8H PRN IVP Nausea & Vomiting 01/28/20 13:00 02/27/20 12:59 Ondansetron HCl (Zofran) 4 mg Q6H PRN IVP Nausea & Vomiting 01/28/20 00:00 02/27/20 00:00 01/29/20 17:46 Pantoprazole (Protonix) 40 mg EVERY 12 HOURS IVP 01/29/20 21:00 02/28/20 20:59 01/29/20 20:43 Sitagliptin Phosphate (Januvia) 100 mg ACBREAKFAST ORAL 01/28/20 15:00 02/27/20 14:59 01/28/20 15:29 Sodium Chloride 1,000 ml @ 125 mls/hr Q8H IV 01/28/20 00:00 02/27/20 00:00 01/29/20 22:28 Vaughn Sanchez MD Jan 30, 2020 06:55
[2020-01-30 08:00] VITALS: BP 190/106
[2020-01-30 08:37] LABS: BASOPHILS % (AUTO) 5.2 % (0.0-2.0); HEMATOCRIT 50.1 % (42.0-52.0); HEMOGLOBIN 16.4 G/DL (14.2-18.0); MEAN CORPUSCULAR VOLUME 83 FL (80-99); MONOCYTES % (AUTO) 15.1 % (1.0-10.0); NEUTROPHILS % (AUTO) 52.7 % (45.0-75.0); PLATELET COUNT 182 K/UL (150-450); RED BLOOD COUNT 6.02 M/UL (4.70-6.10); RED CELL DISTRIBUTION WIDTH 12.5 % (11.6-14.8); WHITE BLOOD COUNT 5.7 K/UL (4.8-10.8)
[2020-01-30] MEDS: Pantoprazole Inj IVP SCH (08:48)
[2020-01-30] MEDS: Aspirin Baby 81mg NG SCH (08:48)
[2020-01-30] MEDS: Heparin 5000 units/ml inj SUBQ SCH (08:50)
[2020-01-30 09:11] LABS: ANION GAP 15 mmol/L (5-15); BLOOD UREA NITROGEN 19 mg/dL (7-18); CALCIUM 8.9 MG/DL (8.5-10.1); CARBON DIOXIDE 25 MMOL/L (21-32); CHLORIDE 96 MMOL/L (98-107); CREATININE 1.2 MG/DL (0.55-1.30); POTASSIUM 3.7 MMOL/L (3.5-5.1); SODIUM 136 MMOL/L (136-145)
--- NOTE | 2020-01-30 09:43 | Pulmonology Progress Note ---
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 01/30/20 0943: Subjective ROS Limited/Unobtainable: Yes Allergies: Coded Allergies: No Known Allergies (Unverified , 06/13/16) All Systems: reviewed and negative except above Subjective denies CP, SOB, on RA on RA c/o abd pain CT A/P noted VQ scan NGT no emesis creat trended down to 1.2 BP high this am, received prn Hydralazine Objective Last 24 Hour Vital Signs Date Time Temp Pulse Resp B/P (MAP) Pulse Ox O2 Delivery O2 Flow Rate FiO2 01/30/20 09:02 190/106 01/30/20 04:00 97.7 89 20 131/78 (95) 98 01/30/20 04:00 90 01/30/20 00:14 99 01/30/20 00:00 98.9 97 19 108/60 (76) 95 01/29/20 21:46 110 164/87 (112) 01/29/20 21:00 98.6 107 30 181/100 (127) 100 01/29/20 21:00 Room Air 01/29/20 20:50 181/100 01/29/20 20:00 100 01/29/20 16:00 97.9 91 20 117/76 (90) 94 01/29/20 15:13 93 01/29/20 12:00 98.0 98 20 139/88 (105) 98 01/29/20 11:46 97 Intake and Output 01/29/20 01/30/20 19:00 07:00 Intake Total 1385 ml 375 ml Output Total 700 ml Balance 685 ml 375 ml Intake Oral 260 ml IV Total 1125 ml 375 ml Output Urine Total 700 ml # Voids 2 3 General Appearance: no acute distress HEENT: normocephalic, atraumatic, anicteric, mucous membranes moist Respiratory: lungs clear, no respiratory distress, no accessory muscle use Cardiovascular: normal rate, regular rhythm - SR on tele Abdomen: normal bowel sounds, soft, non tender, no organomegaly Extremities: no edema, pedal pulses normal Neurologic: no motor/sensory deficits, alert, responsive Musculoskeletal: normal muscle bulk Microbiology Date/Time Source Procedure Growth Status 01/28/20 15:27 Nasopharynx SARS-CoV-2 RdRp Gene Assay - Final Complete 8/23/20 18:22 Urine,Clean Catch Urine Culture - Preliminary Mixed Gram Positive Organism Resulted Laboratory Tests 01/29/20 11:47: POC Whole Blood Glucose 300H 01/29/20 11:48: POC Whole Blood Glucose 261H 01/29/20 16:20: POC Whole Blood Glucose 131H 01/29/20 20:06: POC Whole Blood Glucose 124H 01/30/20 08:15: White Blood Count 5.7, Red Blood Count 6.02, Hemoglobin 16.4, Hematocrit 50.1, Mean Corpuscular Volume 83, Mean Corpuscular Hemoglobin 27.2, Mean Corpuscular Hemoglobin Concent 32.6, Red Cell Distribution Width 12.5, Platelet Count 182, Mean Platelet Volume 10.4H, Neutrophils (%) (Auto) 52.7, Lymphocytes (%) (Auto) 27.0, Monocytes (%) (Auto) 15.1H, Eosinophils (%) (Auto) 0.0, Basophils (%) ( Auto) 5.2H, Sodium Level 136, Potassium Level 3.7, Chloride Level 96L, Carbon Dioxide Level 25, Anion Gap 15, Blood Urea Nitrogen 19H, Creatinine 1.2, Estimat Glomerular Filtration Rate > 60, Glucose Level 202H, Calcium Level 8.9, Magnesium Level 2.2, Troponin I [Pending] Current Medications Medications (Trade) Dose Ordered Sig/Ubaldo Route PRN Reason Start Time Stop Time Status Last Admin Dose Admin Acetaminophen (Tylenol) 650 mg Q4H PRN ORAL Mild Pain (Pain Scale 1-3) 01/28/20 00:00 02/27/20 00:00 01/29/20 20:49 Aspirin (ASA) 81 mg DAILY NG 01/28/20 09:00 03/13/20 08:59 01/30/20 08:48 Barium Sulfate (Readi-Cat 2) 450 ml NOW PRN ORAL Radiology Procedure 01/28/20 13:00 01/30/20 12:59 Dextrose (Dextrose 50%) 25 ml Q30M PRN IV Hypoglycemia 01/28/20 00:00 04/27/20 00:00 Dextrose (Dextrose 50%) 50 ml Q30M PRN IV Hypoglycemia 01/28/20 00:00 04/27/20 00:00 Heparin Sodium (Porcine) (Heparin 5000 units/ml) 5,000 units EVERY 12 HOURS SUBQ 01/28/20 09:00 03/13/20 08:59 01/30/20 08:50 Hydralazine HCl (Apresoline) 10 mg Q4H PRN IV SBP > 160 01/28/20 00:00 04/27/20 00:00 01/30/20 09:02 Insulin Aspart (NovoLOG) BEFORE MEALS AND HS SUBQ 01/28/20 06:30 04/27/20 06:29 01/30/20 06:30 Insulin Aspart (NovoLOG) 8 units NOVOTIAC SUBQ 01/29/20 11:50 04/27/20 06:29 01/30/20 06:30 Insulin Detemir (Levemir) 24 units BEDTIME SUBQ 01/29/20 21:00 04/27/20 20:59 Iohexol (OMNIPAQUE-300 100ml) 100 ml NOW PRN INJ Radiology Procedure 01/28/20 10:00 01/30/20 09:47 Metoclopramide HCl (Reglan) 10 mg Q8H PRN IVP Nausea & Vomiting 01/28/20 13:00 02/27/20 12:59 Ondansetron HCl (Zofran) 4 mg Q6H PRN IVP Nausea & Vomiting 01/28/20 00:00 02/27/20 00:00 01/29/20 17:46 Pantoprazole (Protonix) 40 mg EVERY 12 HOURS IVP 01/29/20 21:00 02/28/20 20:59 01/30/20 08:48 Sitagliptin Phosphate (Januvia) 100 mg ACBREAKFAST ORAL 01/28/20 15:00 02/27/20 14:59 01/28/20 15:29 Sodium Chloride 1,000 ml @ 125 mls/hr Q8H IV 01/28/20 00:00 02/27/20 00:00 01/30/20 08:18 Assessment/Plan Assessment/Plan ASSESSMENT HTN with initial HTN urgency Chest pain, likely atypical with elevated D dimer ( VQ NGT) Epigastric pain Vomiting. probably due to hypo Na GISELL, likely due to dehydration brought by vomiting [> resolved Hyperglycemia associated with DM DMOOC ( HgA1c 10.1) H/O pancreatic cyst vs IPMN vs other Cocaine abuse PLAN OF CARE tele repeat troponin negative and ECG no acute ischemic changes r/o for acute KS a/PLT therapy with ASA , lipid panel with HLD will hold on statin for now since AST rising from 36 to 84 low far low cholesterol diet hold on BB, given recent use of cocaine abuse , urine tox+ cocaine cardio eval appreciated ECHO with pEF 55-60%, no evidence of WMA BP management per cardio recs hydralazine as needed for blood pressure spikes DVT and GI prophylaxis VQ scan NGT O2 prn, stable on RA BS management with long-acting Levemir , short acting premeal insulin, Januvia and SSI as needed->per endo recs hypoglycemia protocol in place Hgb A1c -10.1 diabetic diet , diabetic teaching rapid COVID NGT IV hydration, decreased rate to 75 monitor renal parameters and lytes acute kidney injury likely due to dehydration ->resolved creat from 1.7 down to 1.2 source of hyponatremia probably due to dehydration, uncontrolled BS -resolved , ucx -> mixed GPO CT A/P -> Unremarkable pancreas Questionable wall thickening of the transverse and descending colon. Likely artifact of lack of distention, but the possibility of colitis should be considered. No dilated bile ducts fup with further GI recs GI prophylaxis urine tox screen + cocaine and marijuana supportive care case discussed and evaluated by supervising physician Chung Hammonds MD 01/30/202058: Subjective Allergies: Coded Allergies: No Known Allergies (Unverified , 06/13/16) Assessment/Plan Assessment/Plan Patient seen and examined with NAILING MACHINE FEEDER. Agree with above A&P as it reflects our joint deliberations. 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 NP Jan 30, 2020 09:43 Chung Hammonds MD Jan 30, 2020 20:59
--- NOTE | 2020-01-30 10:54 | Diagnostic Imaging Report ---
EXAM: US Duplex Bilateral Lower Extremities Veins CLINICAL HISTORY: DVT TECHNIQUE: Real-time duplex ultrasound scan of the bilateral lower extremity veins integrating B-mode two-dimensional vascular structure, Doppler spectral analysis, color flow Doppler imaging and compression. COMPARISON: No relevant prior studies available. FINDINGS: Right deep veins: Unremarkable. No DVT in the right common femoral, femoral, proximal deep femoral or popliteal veins. The veins demonstrate normal color flow, are normally compressible, with normal phasic flow and/or augmentation response. Right superficial veins: Unremarkable. No thrombus in the visualized right great saphenous vein. Left deep veins: Unremarkable. No DVT in the left common femoral, femoral, proximal deep femoral or popliteal veins. The veins demonstrate normal color flow, are normally compressible, with normal phasic flow and/or augmentation response. Left superficial veins: Unremarkable. No thrombus in the visualized left great saphenous vein. Soft tissues: No acute findings. No popliteal cyst. IMPRESSION: Normal bilateral lower extremity duplex venous ultrasound.
[2020-01-30 12:00] VITALS: BP 173/104
--- NOTE | 2020-01-30 13:23 | General Progress Note ---
Assessment/Plan Problem List: (1) DM (diabetes mellitus) ICD Codes: E11.9 - Type 2 diabetes mellitus without complications SNOMED: 15592011 (2) Vomiting ICD Codes: R11.10 - Vomiting, unspecified SNOMED: 857651483 Qualifiers: Qualified Codes: R11.2 - Nausea with vomiting, unspecified (3) Abdominal pain ICD Codes: R10.9 - Unspecified abdominal pain SNOMED: 23781984 (4) Cocaine abuse ICD Codes: F14.10 - Cocaine abuse, uncomplicated SNOMED: 38592971 Assessment/Plan: reglan ppi CT reviewed ppi wants to go home repeat labs will fu Subjective ROS Limited/Unobtainable: Yes Allergies: Coded Allergies: No Known Allergies (Unverified , 06/13/16) Objective Last 24 Hour Vital Signs Date Time Temp Pulse Resp B/P (MAP) Pulse Ox O2 Delivery O2 Flow Rate FiO2 01/30/20 09:02 190/106 01/30/20 08:00 98.8 103 22 190/106 (134) 99 01/30/20 04:00 97.7 89 20 131/78 (95) 98 01/30/20 04:00 90 01/30/20 00:14 99 01/30/20 00:00 98.9 97 19 108/60 (76) 95 01/29/20 21:46 110 164/87 (112) 01/29/20 21:00 98.6 107 30 181/100 (127) 100 01/29/20 21:00 Room Air 01/29/20 20:50 181/100 01/29/20 20:00 100 01/29/20 16:00 97.9 91 20 117/76 (90) 94 01/29/20 15:13 93 Intake and Output 01/29/20 01/30/20 19:00 07:00 Intake Total 1385 ml 375 ml Output Total 700 ml Balance 685 ml 375 ml Intake Oral 260 ml IV Total 1125 ml 375 ml Output Urine Total 700 ml # Voids 2 3 Laboratory Tests 01/29/20 16:20: POC Whole Blood Glucose 131H 01/29/20 20:06: POC Whole Blood Glucose 124H 01/30/20 08:15: White Blood Count 5.7, Red Blood Count 6.02, Hemoglobin 16.4, Hematocrit 50.1, Mean Corpuscular Volume 83, Mean Corpuscular Hemoglobin 27.2, Mean Corpuscular Hemoglobin Concent 32.6, Red Cell Distribution Width 12.5, Platelet Count 182, Mean Platelet Volume 10.4H, Neutrophils (%) (Auto) 52.7, Lymphocytes (%) (Auto) 27.0, Monocytes (%) (Auto) 15.1H, Eosinophils (%) (Auto) 0.0, Basophils (%) ( Auto) 5.2H, Sodium Level 136, Potassium Level 3.7, Chloride Level 96L, Carbon Dioxide Level 25, Anion Gap 15, Blood Urea Nitrogen 19H, Creatinine 1.2, Estimat Glomerular Filtration Rate > 60, Glucose Level 202H, Calcium Level 8.9, Magnesium Level 2.2, Troponin I 0.065H Height (Feet): 5 Height (Inches): 9.00 Weight (Pounds): 178 General Appearance: alert EENT: normal ENT inspection Neck: supple Cardiovascular: normal rate Respiratory/Chest: decreased breath sounds Abdomen: normal bowel sounds, non tender, soft Extremities: non-tender Kalyan Hayward MD Jan 30, 2020 13:23
[2020-01-30 13:43] VITALS: BP 173/104
--- NOTE | 2020-01-30 17:34 | Cardiac Electrophysiology PN ---
Assessment/Plan Assessment/Plan 1. Chest pain. Ruled out for myocardial infarction, however, could be due to effect of cocaine. EF 55% 2. Accelerated hypertension. Add Cardizem 90 q8. Avoid betablockers for active cocaine use 3. Hypokalemia. Potassium replaced. 4. Renal failure. Creatinine of 1.5. 5. Polysubstance abuse with cocaine and marijuana. Avoid beta-blockers. 6. Urinary tract infection. 7. Elevated D-dimer but V/Q scan was low probability. 8. Uncontrolled diabetes, on insulin. Subjective Subjective BP was running high and got Hydralazine prn x2. No CP or SOB. Has abdominal pain Objective Last 24 Hour Vital Signs Date Time Temp Pulse Resp B/P (MAP) Pulse Ox O2 Delivery O2 Flow Rate FiO2 01/30/20 13:43 173/104 01/30/20 12:00 98.1 109 22 173/104 (127) 99 01/30/20 12:00 105 01/30/20 09:02 190/106 01/30/20 09:00 Room Air 01/30/20 08:00 98.8 103 22 190/106 (134) 99 01/30/20 08:00 98 01/30/20 04:00 97.7 89 20 131/78 (95) 98 01/30/20 04:00 90 01/30/20 00:14 99 01/30/20 00:00 98.9 97 19 108/60 (76) 95 01/29/20 21:46 110 164/87 (112) 01/29/20 21:00 98.6 107 30 181/100 (127) 100 01/29/20 21:00 Room Air 01/29/20 20:50 181/100 01/29/20 20:00 100 Intake and Output 01/29/20 01/30/20 19:00 07:00 Intake Total 1385 ml 375 ml Output Total 700 ml Balance 685 ml 375 ml Intake Oral 260 ml IV Total 1125 ml 375 ml Output Urine Total 700 ml # Voids 2 3 Laboratory Tests Test 01/29/20 20:06 01/30/20 08:15 POC Whole Blood Glucose 124 MG/DL (74-106) H White Blood Count 5.7 K/UL (4.8-10.8) Red Blood Count 6.02 M/UL (4.70-6.10) Hemoglobin 16.4 G/DL (14.2-18.0) Hematocrit 50.1 % (42.0-52.0) Mean Corpuscular Volume 83 FL (80-99) Mean Corpuscular Hemoglobin 27.2 PG (27.0-31.0) Mean Corpuscular Hemoglobin Concent 32.6 G/DL (32.0-36.0) Red Cell Distribution Width 12.5 % (11.6-14.8) Platelet Count 182 K/UL (150-450) Mean Platelet Volume 10.4 FL (6.5-10.1) H Neutrophils (%) (Auto) 52.7 % (45.0-75.0) Lymphocytes (%) (Auto) 27.0 % (20.0-45.0) Monocytes (%) (Auto) 15.1 % (1.0-10.0) H Eosinophils (%) (Auto) 0.0 % (0.0-3.0) Basophils (%) (Auto) 5.2 % (0.0-2.0) H Sodium Level 136 MMOL/L (136-145) Potassium Level 3.7 MMOL/L (3.5-5.1) Chloride Level 96 MMOL/L (98-107) L Carbon Dioxide Level 25 MMOL/L (21-32) Anion Gap 15 mmol/L (5-15) Blood Urea Nitrogen 19 mg/dL (7-18) H Creatinine 1.2 MG/DL (0.55-1.30) Estimat Glomerular Filtration Rate > 60 mL/min (>60) Glucose Level 202 MG/DL (74-106) H Calcium Level 8.9 MG/DL (8.5-10.1) Magnesium Level 2.2 MG/DL (1.8-2.4) Troponin I 0.065 ng/mL (0.000-0.056) Microbiology Date/Time Source Procedure Growth Status 01/28/20 15:27 Nasopharynx SARS-CoV-2 RdRp Gene Assay - Final Complete 01/28/20 18:22 Urine,Clean Catch Urine Culture - Preliminary Mixed Gram Positive Organism Resulted Objective HEAD AND NECK: No JVD. LUNGS: Clear. CARDIOVASCULAR: Regular S1 and S2 with no gallop or murmur. ABDOMEN: Soft. EXTREMITIES: No pitting edema. Adalberto Dunlap MD Jan 30, 2020 17:34
[2020-01-30] MEDS ORDERED: dilTIAZem HCl 90mg tab ORAL SCH (22:00)
--- NOTE | 2020-02-01 16:37 | Discharge Summary ---
Discharge Summary Discharge Summary _ DATE OF ADMISSION: 01/27/2020 DATE OF DISCHARGE: 01/30/2020 Patient left AGAINST MEDICAL ADVICE REASON FOR ADMISSION: 54 years old male with past medical history of diabetes mellitus, hypertension, presented to emergency room for vomiting episodes for the last 3 days. He denied blood in emesis. No diarrhea. No nausea, vomiting, No abdominal pain. No fever or chills. Patient with prior history of drug abuse Patient also reported epigastric and chest pain , described as burning, nonradiating , 7 out of 10 on a scale 1-10. No fever or chills. Patient with hx of drug abuse, Urine tox screen in December + for cocaine and marijuana. In triage blood sugar was over 500. Patient reported being diabetic and unable to keep down his medications. Patient reported to recent cocaine use. Upon evaluation patient was tachycardic with heart rate 115 and hypertensive with blood pressure 174/102. EKG revealed sinus tachycardia ,no acute ischemic changes. Chemistry revealed sodium 127, potassium 3.8, glucose 492, stable LFT. Anion gap 9 No leukocytosis , hemoglobin 17.7 . Rapid COVID-19 was negative. Chest x-ray revealed no acute cardiopulmonary pathology . In ED department patient received insulin, IV fluids, Pepcid and admitted for further management. CONSULTANTS: splicer apprentice Dr. Bautista rock drill operator GI specialist Dr. Hayward [facility] COURSE: Patient admitted to telemetry floor. Repeated troponin was negative. EKG revealed no acute ischemic changes. Urine tox screen was positive for cocaine and marijuana Last troponin was elevated 0.065 , possibly due to effect of cocaine abuse as per splicer apprentice. Echocardiogram demonstrated preserved ejection fraction of 55 to 60% with borderline left ventricular hypertrophy. No evidence of wall motion abnormality. Blood pressure was managed with Cardizem and Hydralazine as needed for blood pressure spikes. Beta man was avoided given active cocaine use. Lipid panel revealed hyperlipidemia, however statin was hold due to elevated AST ( rising from 36- to 84). D-Dimer was elevated-2.35. Venous duplex bilateral lower extremity revealed no evidence of acute DVT. VQ scan revealed low probability for PE. DVT and GI prophylaxis provided. Antiplatelet therapy with aspirin continued. Potassium was replaced. Renal parameters and electrolytes were closely monitored; prior to signing AMA creatinine from 1.7 down to 1.2. Acute kidney injury resolved. Hyponatremia resolved with IV hydration likely was depletional . Patient was counseled on abstinence from the cocaine. Urine culture revealed mixed gram positive organisms; antibiotic stopped . Hemoglobin A1c 10.1. Blood sugar was managed with long-acting Levemir , Januvia , short acting pre- meal insulin as per rock drill operator recommendation and sliding scale of insulin as needed. Hypoglycemia protocol was in place. Diabetic teaching provided. Patient was counseled on low-fat low-cholesterol diabetic diet. On prior admission CTA of the chest revealed partially visualized pancreas with few tiny low-density lesions. Possibly IPMN or interdigitation. Patient complained of abdominal pain. Pain management was addressed. Antiemetic provided as needed. CT of the abdomen and pelvis was done and revealed unremarkable pancreas. Questionable wall thickening of the transverse and descending colon. Likely artifact. but the possibility of colitis should be considered. Wall thickening of the distal esophagus, likely esophagitis Negative for gallstones Abdominal pain resolved. Patient was able to tolerate diet. Patient was counseled on abstinence from illicit street drugs. On 01/29 patient decided to leave AGAINST MEDICAL ADVICE. The risks and consequences of signing AGAINST MEDICAL ADVICE were discussed with patient in detail. Patient verbalized understanding, nevertheless signed AMA form and left. FINAL DIAGNOSES: Hypertension with initial hypertensive urgency Chest pain , likely atypical with elevated d-dimer Elevated d-dimer ( VQ scan negative ) Elevated troponin , possibly due to cocaine use Epigastric pain Vomiting -probably due to hyponatremia Hyponatremia -resolved Acute kidney injury ( likely due to dehydration brought by vomiting ) - resolved Diabetes mellitus [id number] with hemoglobin A1c 10.1 Questionable pancreatic cyst vs IPMN-ruled out Polysubstance abuse /cocaine , marijuana 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 NP Feb 01, 2020 16:37
== END 2020-01-30 17:59 | disposition left against medical advice (07) | DRG 426 ==
LOC: EMR 21:29 → 2E 22:04 → EDBEDREQ 23:06 → 2E 01-30 06:23
DX: E87.1 Hypo-osmolality and hyponatremia (principal); E11.65 Type 2 diabetes mellitus with hyperglycemia; N17.9 Acute kidney failure, unspecified; Z79.4 Long term (current) use of insulin; E86.0 Dehydration; I16.0 Hypertensive urgency; I10 Essential (primary) hypertension; F14.10 Cocaine abuse, uncomplicated; R07.89 Other chest pain; F12.10 Cannabis abuse, uncomplicated
CPT/HCPCS: 36415; 36600; 71045; 74177; 78579; 78580; 80048; 80053; 80061; 80307; 81003; 82009; 82150; 82803; 82962; 83036; 83690; 83735; 84484; 85025; 85379; 87086; 93005; 93306; 93970; 96361; 96374; 96375; 99285; A9503; J1815; J2405; J7030; J8499; S5561; U0002